=== PATIENT | male | born 1975 | race African-American/Black ===

== ENCOUNTER 2017-01-18 08:52 | Outpatient (CLI) | payer OTHER | END 2017-01-18 08:53 | disposition home or self-care (01) | PROVIDERS: ATTEND Internal Medicine Cardiovascular Disease | DX: Z01.810 Encounter for preprocedural cardiovascular examination (principal); I10 Essential (primary) hypertension | CPT/HCPCS: 93017 ==

== ENCOUNTER 2017-01-18 12:47 | Outpatient (CLI) | payer OTHER | END 2017-01-18 12:48 | disposition home or self-care (01) | LOC: DTY/OP 12:47 | PROVIDERS: ATTEND Surgery | DX: G47.30 Sleep apnea, unspecified (principal); I10 Essential (primary) hypertension | CPT/HCPCS: 97802 ==

== ENCOUNTER 2017-06-23 19:30 | Outpatient (CLI) | payer OTHER | END 2017-06-23 19:31 | disposition home or self-care (01) | LOC: SLEEPLAB 19:30 | PROVIDERS: ATTEND Internal Medicine | DX: G47.33 Obstructive sleep apnea (adult) (pediatric) (principal); R06.83 Snoring; K21.9 Gastro-esophageal reflux disease without esophagitis; E66.9 Obesity, unspecified; R30.0 Dysuria; R35.1 Nocturia; I10 Essential (primary) hypertension | CPT/HCPCS: 95811 ==

== ENCOUNTER 2018-01-04 10:25 | Outpatient (CLI) | payer OTHER ==
[2018-01-04 13:08] LABS: #Eosinphils 0.6 thou/uL (0.0-0.7); #Lymphocytes 1.9 thou/uL (1.20-3.40); #Monocytes 0.6 thou/uL (0.11-0.59); #Neutrophils 4.9 thou/uL (1.40-6.50); %Basophils 0.5 % (0.0-1.0); %Eosinophils 7.3 % (0.0-10.0); %Lymphocytes 23.9 % (21.0-51.0); %Monocytes 7.5 % (0.0-10.0); %Neutrophils 60.8 % (42.0-75.0); Hemoglobin 14.6 g/dL (14.0-18.0); Mean Corpuscular HGB CONC 32.8 g/dL (32.0-36.0); Mean Corpuscular Hemoglobin 30.5 pg (27.0-31.0); Mean Corpuscular Volume 92.7 fL (78.0-98.0); Mean Platelet Volume 8.5 fL (7.4-10.4); Platelet Count 299 thou/uL (130-400); RBC Distribution Width 12.6 % (11.5-14.5); Red Blood Cell (RBC) Count 4.79 mill/uL (4.70-6.10); White Blood Cell (WBC) Count 8.1 thou/uL (4.8-10.8)
[2018-01-04 13:17] LABS: Hemoglobin A1c 5.2 % (4.0-6.0)
[2018-01-04 13:29] LABS: ALT (SGPT) 23 U/L (8-55); AST (SGOT) 20 U/L (5-34); Albumin 3.8 g/dL (3.5-5.0); Alkaline Phosphatase 113 U/L (40-150); Anion Gap 14 mmol/L (10-20); BUN (Urea Nitrogen) 15 mg/dL (8.9-20.6); Bilirubin, Direct 0.2 mg/dL (0.1-0.3); Bilirubin, Total 0.5 mg/dL (0.2-1.2); Calc. Creatinine Clearance 0 mL/min (70-130); Carbon Dioxide 20 mmol/L (22-29); Chloride 106 mmol/L (98-107); Estimated GFR-MDRD 78; Globulin 3.8 g/dL (2.4-3.5); Glucose 74 mg/dL (70-105); Potassium 4.5 mmol/L (3.5-5.1); Protein, Total 7.6 g/dL (6.0-8.3); Sodium 135 mmol/L (136-145)
--- NOTE | 2018-01-04 13:34 | RAD ---
TWO VIEWS CHEST: Date: 01-04-18 Provided Clinical History: Pre op. FINDINGS: Comparison 03-17-04. Cardiac and mediastinal silhouette is unchanged in appearance. Lungs appear clear. No pleural fluid o r pneumothorax apparent. IMPRESSION: No evidence for an acute cardiopulmonary process. POS: [facility]
--- NOTE | 2018-01-04 17:47 | EKG ---
Test Reason : Blood Pressure : / mmHG Vent. Rate : 052 BPM Atrial Rate : 052 BPM P-R Int : 170 ms QRS Dur : 096 ms QT Int : 454 ms P-R-T Axes : 010 025 026 degrees QTc Int : 422 ms Sinus bradycardia Otherwise normal ECG When compared with ECG of 11-OCT-2015 12:42, Vent. rate has decreased BY [address] Jorge A LEIGH ([id number]) on 01/04/2018 5:47:12 PM Referred By: LEE Confirmed By:DR. Jorge A LEIGH
== END 2018-01-04 10:26 | disposition home or self-care (01) ==
LOC: LABBT 10:25
PROVIDERS: ATTEND Surgery
DX: Z01.818 Encounter for other preprocedural examination (principal); E66.01 Morbid (severe) obesity due to excess calories
CPT/HCPCS: 71046; 80053; 80076; 83036; 85025; 93005; 93010

== ENCOUNTER 2018-01-04 11:00 | Inpatient (IN) | payer OTHER ==
[2018-01-04 13:29] VITALS: BMI 54.8
[2018-01-12] MEDS ORDERED: Heparin 5,000 UNITS/ML VIAL ONE (06:11)
[2018-01-12] MEDS ORDERED: Midazolam HCl 2 mg/2 ml Vial ONE ×2 (06:36→07:13)
[2018-01-12] MEDS ORDERED: Fentanyl 250 MCG/5 ML VIAL ONE (06:36)
[2018-01-12] MEDS ORDERED: Bupivacaine/Epinephrine 0.25% 30 ML VIAL ONE (06:50)
[2018-01-12] MEDS ORDERED: CEFAZOLIN/Water 2 GM/20 ML SYRINGE ONE (06:53)
[2018-01-12] MEDS ORDERED: Ondansetron HCl/PF 4 MG/2 ML Vial IVP PRN ×3 (09:34→10:19)
[2018-01-12] MEDS ORDERED: Promethazine HCl 25 MG/ML VIAL IM PRN ×3 (09:34→10:19)
[2018-01-12] MEDS ORDERED: Morphine Sulfate 2 MG/ML SYRINGE SLOW IVP PRN (09:34)
[2018-01-12] MEDS ORDERED: Promethazine HCl 25 MG/ML VIAL SLOW IVP PRN (09:34)
[2018-01-12] MEDS ORDERED: Lidocaine 1% PF 5 ML VIAL ONE (09:40)
[2018-01-12] MEDS ORDERED: Glycopyrrolate 0.2 MG/ML 5 ML SYRINGE ONE (09:40)
[2018-01-12] MEDS ORDERED: ePHEDrine/0.9% NaCl/PF SYRINGE 50 mg/10 ml ONE (09:40)
[2018-01-12] MEDS ORDERED: Ondansetron HCl/PF 4 MG/2 ML Vial ONE (09:40)
[2018-01-12] MEDS ORDERED: PROPOFOL 200 MG/20 ML VIAL ONE (09:40)
[2018-01-12] MEDS ORDERED: Dexamethasone 20 MG/5 ML VIAL ONE (09:40)
[2018-01-12] MEDS ORDERED: Dextrose 5% in Water 1,000 ML IV PRN (09:45)
[2018-01-12] MEDS ORDERED: hydrALAZINE 20 MG/ML VIAL SLOW IVP PRN (09:45)
[2018-01-12] MEDS ORDERED: Hydrocodone-Acetamin 15 ML UDCUP PO PRN (09:45)
[2018-01-12] MEDS ORDERED: Dextrose 50% Abboject 50 ML SYRINGE SLOW IVP PRN (09:45)
[2018-01-12] MEDS ORDERED: diphenhydrAMINE 50 MG/ML VIAL IVP PRN ×2 (09:45→10:19)
[2018-01-12] MEDS ORDERED: Fentanyl 100 MCG/2 ML VIAL ONE (09:59)
[2018-01-12] MEDS ORDERED: diphenhydrAMINE 25 MG CAP PO PRN (10:19)
[2018-01-12] MEDS ORDERED: Naloxone HCl 0.4 mg/ml Vial IV PRN (10:19)
[2018-01-12] MEDS ORDERED: fentaNYL Citrate/PF 2,000 MCG in Sodium Chloride 0.9% 60 ML IV PRN (10:19)
[2018-01-12] MEDS ORDERED: Zolpidem Tartrate 5 MG TAB PO PRN (10:19)
[2018-01-12] MEDS ORDERED: diphenhydrAMINE 50 MG/ML VIAL IM PRN (10:19)
[2018-01-12] MEDS ORDERED: Communication Order-Pharmacy FS SCH (10:30)
[2018-01-12] MEDS ORDERED: Acetaminophen 1,000 MG in Premix Bag 1 BAG IVPB SCH (10:30)
--- NOTE | 2018-01-12 11:07 | OP ---
DATE OF PROCEDURE: 01/12/2018 PREOPERATIVE DIAGNOSIS: Morbid obesity. SURGEON: Jagjit Hawkins M.D. PROCEDURE: Laparoscopic sleeve gastrectomy, esophagogastroscopy. INDICATIONS: A 42-year-old male who has been morbidly obese for many years and attempted multiple we ight loss programs without success. FINDINGS: Very thick abdominal wall requiring an extra long trocars. A 38-Sami bougie was used. PROCEDURE IN DETAIL: After informed consent was obtained, the patient was taken to the operating dennis m and given general endotracheal anesthesia. He was placed in the supine position. Abdomen was prep ped and draped in usual fashion. Local anesthesia infiltrated subcutaneously and deep. A 12 mm inci lawanda was performed approximately 8 inches below the xiphoid slightly to the left. Veress needle inse rted. Drop test performed. Pneumoperitoneum was created to a volume of 2 liters of carbon dioxide. Utilizing a bladeless 12 mm trocar and 0 degree laparoscope, direct visual entry the abdominal cavit y was performed. Pneumoperitoneum was created to a pressure of 15 mmHg. However, due to the thickne ss of his abdominal wall I had to switch out to the long trocars. Then, a Nathansen liver retractor inserted. Left lobe of liver retracted superiorly. Pylorus identified, a 12 mm port placed on the r ight beneath it and two 12s placed left subcostal. The omentum was taken off the greater curvature 5 cm from the pylorus utilizing the LigaSure. Short gastrics divided with LigaSure, left crura define d with the LigaSure. A 38-Sami bougie inserted directed into the antrum. The linear 60 mm 2 green load stapler used to divide the antrum to the bougie, a gold load along the bougie, and a series of blues were used to divide the stomach. The intraoperative endoscopy was then performed. The video e ndoscope inserted under direct vision and advanced into the sleeve. The staple line inspected. Ther e was no bleeding. Staple line then tested by inflating the new stomach with pressurized air under w ater. There is no air leak. Stomach decompressed. Scope removed. The remnant stomach removed from the abdomen through the left lateral port site. The fascia closed with several 0 Vicryl sutures and the GraNee needle. Trocars and retractors removed after hemostasis assured. Skin closed with inter rupted 4-0 Rapide. Steri-Strips applied. Sterile bandage applied. The patient tolerated the proced ure well and was transferred to recovery in good condition. Sponge and needle count verified correct x2.
[2018-01-12] MEDS: Fentanyl 100 MCG/2 ML VIAL SLOW IVP SCH ×2 (12:52→12:53)
[2018-01-12] MEDS: D5 1/2 NS w/20 mEq KCL 1,000 ML IV SCH ×3 (13:13→23:27)
[2018-01-12] MEDS: Ketorolac Tromethamine 30 MG/ML VIAL IVP SCH ×3 (13:27→23:26)
[2018-01-12] MEDS: CEFAZOLIN/Water 2 GM/20 ML SYRINGE SLOW IVP SCH ×2 (15:47→23:27)
[2018-01-13] MEDS: Ketorolac Tromethamine 30 MG/ML VIAL IVP SCH ×4 (05:17→23:42)
[2018-01-13] MEDS: D5 1/2 NS w/20 mEq KCL 1,000 ML IV SCH ×3 (05:17→20:10)
[2018-01-13 05:45] LABS: Anion Gap 9 mmol/L (10-20); BUN (Urea Nitrogen) 10 mg/dL (8.9-20.6); Calc. Creatinine Clearance 204 mL/min (70-130); Calcium 8.8 mg/dL (7.8-10.44); Carbon Dioxide 22 mmol/L (22-29); Chloride 106 mmol/L (98-107); Estimated GFR-MDRD 74; Glucose 122 mg/dL (70-105); Potassium 4.4 mmol/L (3.5-5.1); Sodium 133 mmol/L (136-145)
[2018-01-13 05:58] LABS: #Lymphocytes 1.3 thou/uL (1.20-3.40); #Monocytes 0.9 thou/uL (0.11-0.59); #Neutrophils 9.7 thou/uL (1.40-6.50); %Basophils 0.1 % (0.0-1.0); %Eosinophils 0.1 % (0.0-10.0); %Lymphocytes 10.6 % (21.0-51.0); %Monocytes 7.3 % (0.0-10.0); Hemoglobin 13.1 g/dL (14.0-18.0); Mean Corpuscular HGB CONC 32.1 g/dL (32.0-36.0); Mean Corpuscular Hemoglobin 29.4 pg (27.0-31.0); Mean Corpuscular Volume 91.5 fL (78.0-98.0); Mean Platelet Volume 8.5 fL (7.4-10.4); Platelet Count 254 thou/uL (130-400); RBC Distribution Width 12.5 % (11.5-14.5); Red Blood Cell (RBC) Count 4.45 mill/uL (4.70-6.10); White Blood Cell (WBC) Count 11.9 thou/uL (4.8-10.8)
[2018-01-13] MEDS: Pantoprazole 40 MG VIAL IVP SCH (09:07)
[2018-01-13] MEDS: Enoxaparin Sodium 40 MG/0.4 ML SYRINGE SC SCH (09:07)
--- NOTE | 2018-01-13 10:51 | RAD ---
15 ML SWALLOW: History Postop day 1 gastric bypass. COMPARISON: None. FINDINGS: The patient was administered 15 cc of Gastrografin.. There is marked delay in passage of Gastrografi n from the esophagus into the residual stomach. After 20 minutes, Gastrografin is still present in t he stomach. There is a single postprocedure image obtained which does demonstrate some contrast in t he residual stomach and proximal small bowel. No evidence of leak or extravasation on this single ra diograph. Single radiograph still demonstrates contrast in the esophagus. IMPRESSION: Marked delay in passage of Gastrografin. There is still Gastrografin in the esophagus even after 20 minutes. POS: [facility]
[2018-01-13] MEDS ORDERED: Iopamidol 300 61% 30 ML VIAL ONE (11:23)
--- NOTE | 2018-01-13 11:33 | PRG ---
DATE OF SERVICE: 01/13/2018 SUBJECTIVE: The patient says he has been tolerating some ice chips and liquids. He went down for hi s swallow study quite a bit of inflammation not very much of the contrast went through, but he says he feels fine. Pain is okay. OBJECTIVE: VITAL SIGNS: Temperature 98, pulse 79, and blood pressure 156/85. GENERAL: He looks good. Incisions are healing well. No minimal drainage. LABORATORY DATA: His white count 11.9, H&H 13 and 40, platelet count 254. Electrolytes: Glucose 12 2, sodium 133. ASSESSMENT: Postoperative edema. PLAN: Allow him just ago with very small sips, he probably need to spend an extra day here.
[2018-01-14] MEDS: Ketorolac Tromethamine 30 MG/ML VIAL IVP SCH ×2 (05:42→12:02)
[2018-01-14] MEDS: D5 1/2 NS w/20 mEq KCL 1,000 ML IV SCH (05:46)
[2018-01-14] MEDS: Enoxaparin Sodium 40 MG/0.4 ML SYRINGE SC SCH (08:52)
[2018-01-14] MEDS: Pantoprazole 40 MG VIAL IVP SCH (08:52)
[2018-01-14 11:48] VITALS: BP 153/88; TEMP 98.1
--- NOTE | 2018-01-14 13:35 | DIS ---
DISCHARGE DIAGNOSIS: Morbid obesity. PROCEDURES DURING ADMISSION: Laparoscopic sleeve gastrectomy, intraoperative esophagogastroscopy, po stoperative Gastrografin swallow. HOSPITAL COURSE: The patient was admitted, taken to the operating room where he underwent sleeve gas trectomy. Postoperatively, he had a Gastrografin swallow that showed a lot of holdup at the EG junct ion. He was able to tolerate some liquids, but was not able to stay hydrated completely yet. He spe nt an extra day and today he is doing much better. He is able to drink fluids much better and is stephon ng discharged home in good condition on Zofran. He already has his narcotics for his back pain. He will follow up with me in 2 weeks.
== END 2018-01-14 13:07 | disposition home or self-care (01) | DRG 621 ==
LOC: SURG A 01-12 05:51
PROVIDERS: ADMIT Surgery; ATTEND Surgery
PROC: 0DB64Z3 Excision of Stomach, Percutaneous Endoscopic Approach, Vertical (ICD-10-PCS; principal; 2018-01-12)
DX: E66.01 Morbid (severe) obesity due to excess calories (principal); R60.9 Edema, unspecified; Z68.43 Body mass index [BMI] 50.0-59.9, adult; M54.9 Dorsalgia, unspecified; Z79.891 Long term (current) use of opiate analgesic
CPT/HCPCS: 36415; 74241; 80048; 85025; 88307; 88312; 94760; C9113; J0131; J0360; J1100; J1644; J1650; J1885; J2001; J2250; J2405; J2704; J3010; J7050

== ENCOUNTER 2018-01-26 13:35 | Inpatient (IN) | payer OTHER ==
[~2018-01-26 13:35] MED LIST: ISOVUE-370 76%-LOCM 1 ML ONE
[2018-01-26 14:14] LABS: Hemoglobin 15.1 g/dL (14.0-18.0); Mean Corpuscular HGB CONC 32.3 g/dL (32.0-36.0); Mean Corpuscular Hemoglobin 30.1 pg (27.0-31.0); Mean Platelet Volume 9.8 fL (7.4-10.4); Platelet Count 269 thou/uL (130-400); RBC Distribution Width 12.8 % (11.5-14.5); Red Blood Cell (RBC) Count 5.03 mill/uL (4.70-6.10); White Blood Cell (WBC) Count 15.3 thou/uL (4.8-10.8)
[2018-01-26 14:26] LABS: Eosinophils 1 % (0-10); Lymphocytes 10 % (21-51); MDiff Complete? YES; Monocytes 4 % (0-10); Neutrophil 85 % (42-75); PLT Morphology Comment Appears Adequate; RBC Morphology Normal
[2018-01-26 14:34] LABS: CKMB 4.1 ng/mL (0-6.6)
--- NOTE | 2018-01-26 15:02 | RAD ---
CHEST ONE VIEW: 01/26/18 HISTORY: Dyspnea. COMPARISON: Chest radiograph 01/04/18. FINDINGS: Chronic mild elevation of the right hemidiaphragm. Heart size is upper limits of normal. No pneumotho rax. No effusion. No acute osseous abnormality. IMPRESSION: Mild cardiomegaly. No acute intrathoracic abnormality. POS: [facility]
[2018-01-26 16:00] LABS: ALT (SGPT) 18 U/L (8-55); AST (SGOT) 18 U/L (5-34); Albumin 3.6 g/dL (3.5-5.0); Alkaline Phosphatase 110 U/L (40-150); Anion Gap 19 mmol/L (10-20); BUN (Urea Nitrogen) 13 mg/dL (8.9-20.6); Bilirubin, Total 0.8 mg/dL (0.2-1.2); Calc. Creatinine Clearance 0 mL/min (70-130); Calcium 9.4 mg/dL (7.8-10.44); Carbon Dioxide 18 mmol/L (22-29); Chloride 104 mmol/L (98-107); Estimated GFR-MDRD 62; Globulin 4.3 g/dL (2.4-3.5); Glucose 89 mg/dL (70-105); Potassium 4.4 mmol/L (3.5-5.1); Protein, Total 7.9 g/dL (6.0-8.3); Sodium 137 mmol/L (136-145)
[2018-01-26] MEDS ORDERED: Heparin 25,000 units/D5W 500 ML ONE (16:16)
--- NOTE | 2018-01-26 16:18 | PDOC.FPRHP ---
- History of Present Illness Chief Complaint: SOB History of Present Illness: 42 yo male who presents to the ED with acute onset SOB. Patient states he had gastric sleeve surgery 2 weeks ago and has been recovering well. Patient states that 3 days ago when he woke up to get out of bed that he had acute onset chest pain and SOB. He stated that it wasn't severe enough to seek medical attention at that time. Patient states that he has chronic back pain at baseline, but over the last three days he has been increasingly weak. Patient denies any recent illness, cough, bloody emesis, diarrhea, or rashes during this time. Patient does note that he had 2 episodes of vomiting. Patient denies lower extremity edema, redness or swelling in his legs or joints, unilateral weakness , or vision changes. Patient states that other than his SOB his recovery was going well and was scheduled to see his PCP today. Of note, patient has residual left sided weakness from previous "stroke." No other complaints at this time. ED Course: 1L NS, Protonix, Heparin 18 un/kg/hr infusion - Allergies/Adverse Reactions Allergies Allergy/AdvReac Type Severity Reaction Status Date / Time No Known Allergies Allergy Verified 01/04/18 11:11 - Home Medications Medication Instructions Recorded Confirmed Type HYDROcodone Bit/APAP 10/325 [[place]] 1 tab PO Q4HR PRN 10/08/15 01/04/18 History Pantoprazole [Protonix] 40 mg PO HS 10/08/15 01/04/18 History Atorvastatin Calcium [Lipitor] 1 tab PO HS 01/04/18 01/04/18 History Furosemide 0.5 tab PO QAM 01/04/18 01/05/18 History Amiodarone [Cordarone] 200 mg PO DAILY 01/05/18 01/05/18 History Diltiazem HCl [Diltiazem 24Hr ER] 1 cap PO DAILY 01/05/18 01/05/18 History Ondansetron [Zofran ODT] 4 mg PO Q4HR PRN #10 tab 01/14/18 Rx - History PMHx: HTN, A-fib, Chronic back pain, GERD PSHx: Tumor removal from behind ear, Gastric sleeve 2 weeks ago. FHx: Heart disease, DM, Thyroid disease Social: Patient is former tobacco smoker. Patient has been smoke free 6 months. Patient socially drinks alcohol 4 times per year. Patient denies any illegal drug use. - Review of Systems General: denies: fever/chills, weight/appetite/sleep changes ENT: denies: nasal congestion Respiratory: reports: shortness of breath. denies: cough Cardiovascular: reports: chest pain Gastrointestinal: reports: nausea, vomiting. denies: diarrhea, constipation, abdominal pain Skin: denies: rashes, lesions Musculoskeletal: denies: pain, swelling Neurological: reports: weakness. denies: numbness, syncope Psychological: denies: anxiety, depression - Vital signs BP: 117/95 HR: 111 RR: 16 Tmax: 97.6 Pox: 100% on 3L Wt: 179 kg - Physical Exam Constitutional: NAD, awake, alert and oriented -Constitutional: Morbidly obese HEENT: normocephalic and atraumatic, PERRLA -HEENT: Steinberg teeth present Neck: supple, trachea midline Heart: normal S1/S2, no murmurs/rubs/gallops, pulses present, no edema -Heart: Tachycardic rate Lungs: CTAB, no respiratory distress, good air movement, no wheezing Abdomen: soft, non-tender, bowel sounds present, no masses/distention -Abdomen: Laparoscopic incision sites clean, dry, and intact Musculoskeletal: normal structure, normal tone Neurological: normal sensation -Neurological: Residual left sided facial droop. Per family and patient at baseline Skin: no rash/lesions, capillary refill <2 seconds -Skin: Multiple tattoos Heme/Lymphatic: no unusual bruising or bleeding, no purpura, no petechia Psychiatric: normal mood and affect, good judgment and insight, intact recent and remote memory FMR H&P: Results - Labs Result Diagrams: 01/26/18 13:56 01/26/18 15:24 Lab results: WBC 15.3 thou/uL (4.8-10.8) H 01/26/18 13:56 Hgb 15.1 g/dL (14.0-18.0) 01/26/18 13:56 Hct 46.8 % (42.0-52.0) 01/26/18 13:56 MCV 93.0 fL (78.0-98.0) 01/26/18 13:56 Plt Count 269 thou/uL (130-400) 01/26/18 13:56 Sodium 137 mmol/L (136-145) 01/26/18 15:24 Potassium 4.4 mmol/L (3.5-5.1) 01/26/18 15:24 Chloride 104 mmol/L (98-107) 01/26/18 15:24 Carbon Dioxide 18 mmol/L (22-29) L 01/26/18 15:24 BUN 13 mg/dL (8.9-20.6) 01/26/18 15:24 Creatinine 1.50 mg/dL (0.6-1.3) H 01/26/18 15:24 Glucose 89 mg/dL (70-105) 01/26/18 15:24 Calcium 9.4 mg/dL (7.8-10.44) 01/26/18 15:24 Total Bilirubin 0.8 mg/dL (0.2-1.2) 01/26/18 15:24 AST 18 U/L (5-34) 01/26/18 15:24 ALT 18 U/L (8-55) 01/26/18 15:24 Alkaline Phosphatase 110 U/L (40-150) 01/26/18 15:24 CK-MB (CK-2) 4.1 ng/mL (0-6.6) 01/26/18 13:56 Serum Total Protein 7.9 g/dL (6.0-8.3) 01/26/18 15:24 Albumin 3.6 g/dL (3.5-5.0) 01/26/18 15:24 Lipase 42 U/L (8-78) 01/26/18 13:56 - EKG Interpretation EK lead EKG shows, sinus tachycardia, Rate (beats per minute): 120, Conduction with, posterior fascicular block, T waves, inverted, Leads affected: III, Leads affected: aVf, Senath, right, - Radiology Interpretation Chest x-ray Status: image reviewed by me, report reviewed by me (Cardiomegaly, no other acute findings) CT scan - chest Status: image reviewed by me (Bilateral pulmonary emboli), report reviewed by me FMR H&P: A/P - Problem List (1) Multiple pulmonary emboli Current Visit: Yes Status: Acute Code(s): I26.99 - OTHER PULMONARY EMBOLISM WITHOUT ACUTE COR PULMONALE (2) Morbid obesity Current Visit: No Status: Acute Code(s): E66.01 - MORBID (SEVERE) OBESITY DUE TO EXCESS CALORIES (3) History of weight loss surgery Current Visit: Yes Status: Acute Code(s): Z98.84 - BARIATRIC SURGERY STATUS (4) Leukocytosis Current Visit: Yes Status: Acute Code(s): D72.829 - ELEVATED WHITE BLOOD CELL COUNT, UNSPECIFIED (5) Elevated troponin Current Visit: Yes Status: Acute Code(s): R74.8 - ABNORMAL LEVELS OF OTHER SERUM ENZYMES (6) MAGDY (acute kidney injury) Current Visit: Yes Status: Acute Code(s): N17.9 - ACUTE KIDNEY FAILURE, UNSPECIFIED (7) HTN (hypertension) Current Visit: No Status: Acute Code(s): I10 - ESSENTIAL (PRIMARY) HYPERTENSION (8) History of atrial fibrillation Current Visit: Yes Status: Acute Code(s): Z86.79 - PERSONAL HISTORY OF OTHER DISEASES OF THE CIRCULATORY SYSTEM (9) History of CVA (cerebrovascular accident) Current Visit: Yes Status: Acute Code(s): Z86.73 - PRSNL HX OF TIA (TIA), AND CEREB INFRC W/O RESID DEFICITS (10) GERD (gastroesophageal reflux disease) Current Visit: Yes Status: Acute Code(s): K21.9 - GASTRO-ESOPHAGEAL REFLUX DISEASE WITHOUT ESOPHAGITIS - Plan 1. Multiple PE - Continue Heparin - Will need to be transitioned to termite treater helper oral medications - Will consider hypercoagulability panel, however, likely low yield due to acute clot - Continuous cardiac monitoring - Lower extremity Doppler US to rule out DVT 2. Morbid Obesity - Recent weight loss surgery - Dr. Hawkins performed procedure on 01/12. Discharged 01/14. - Recommend weight loss - Modified diet per surgery recommendations 3. Leukocytosis - Likely due to PE - Will trend with CBC 4. Elevated Troponin - Likely related to PE and demand - repeat/trend troponins - Consider cardiology consult (Dr. Catherine primary cellophane casting machine repairer) 5. MAGDY - Elevated above baseline - Could be due to recent surgery and diet changes - IVF NS @ 150 - Recheck BMP #. GERD - Continue home medications #. HTN - Continue home medications #. Past history of A-fib - Currently in sinus tachycardia - Continuous telemetry monitoring - Cardiology stopped anticoagulants in recent past #. Past history of CVA - MRI in clinic chart shows ischemic changes in right lobe - baseline left sided facial weakness CODE STATUS: FULL CODE PCP: Dr. Shearer Disposition: Stable, will admit to Telemetry unit and continue current plan of care.
[2018-01-26] MEDS ORDERED: Heparin 25,000 units/D5W 500 ML IV SCH (16:45)
[2018-01-26] MEDS ORDERED: Heparin 10,000 UNITS/ 10 ML VIAL SLOW IVP SCH ×2 (16:45→17:30)
--- NOTE | 2018-01-26 17:07 | CT ---
CT PULMONARY ANGIOGRAM WITH IV CONTRAST AND 3D POSTPROCESSING: Date: 01/26/18 HISTORY: 42-year-old male with chest pain, shortness of breath, recent gastric sleeve surgery 2 weeks ago. FINDINGS: There is good contrast opacification of the pulmonary arterial vasculature with filling defects bilat erally, consistent with pulmonary embolism. No thoracic aortic aneurysm or dissection is seen. No ple ural or pericardial effusions are identified. No pneumothoraces, lobar consolidation, pulmonary nodul es, or masses are seen. No osteolytic or osteoblastic lesions are noted. IMPRESSION: Bilateral pulmonary embolism. Discussed over the telephone with ER physician, Dr. Sonu Lam, at 1608 hours. CODE CR. POS: [facility]
[2018-01-26] MEDS ORDERED: Heparin 25,000 units/D5W 500 ML IVPB SCH (17:30)
[2018-01-26 18:10] LABS: Platelet Count 245 thou/uL (130-400)
[2018-01-26 18:11] LABS: Troponin I 0.761 ng/mL (< 0.028)
[2018-01-26 18:24] LABS: PTT 236.8 SEC (22.9-36.1)
[2018-01-26] MEDS ORDERED: Metoprolol Tartrate 5 MG/5 ML VIAL ONE ×2 (19:05→19:18)
[2018-01-26] MEDS ORDERED: Metoprolol Tartrate 50 MG TAB ONE (19:18)
[2018-01-26] MEDS ORDERED: Sodium Chloride 0.9% 1,000 ML IV SCH (20:15)
[2018-01-26 20:39] LABS: Troponin I 1.141 ng/mL (< 0.028)
[2018-01-26] MEDS ORDERED: Acetaminophen 325 MG TAB PO PRN (20:58)
[2018-01-26] MEDS ORDERED: Bisacodyl 5 MG TAB PO PRN (20:58)
[2018-01-26] MEDS ORDERED: Ondansetron ODT 4 MG TAB PO PRN (20:58)
[2018-01-26 21:07] VITALS: BMI 51.2
[2018-01-26] MEDS ORDERED: Sodium Chloride 0.9% 500 ML IV SCH (21:15)
[2018-01-26 21:30] LABS: Actual Bicarbonate (HCO3a) 14.4 mEq/L (22-28); Base Excess (BEa) -8.2 mEq/L (-2.0 to +3.0); Calcium, Ionized 1.12 mmol/L (1.12-1.30); Hemoglobin (Hb) 15.2 g/dL (14.0-18.0); Potassium - ABG Lab 5.33 mmol/L (3.70-5.30)
[2018-01-26 21:35] LABS: CO2 Tension 23.8 mmHg (35.0-45.0)
[2018-01-26 21:36] LABS: Puncture Site RRAD
[2018-01-26] MEDS: Sodium Chloride 0.9% 1,000 ML IV SCH (22:54)
[2018-01-26] MEDS: Ondansetron HCl/PF 4 MG/2 ML Vial IVP PRN (22:59)
[2018-01-26] MEDS ORDERED: Vancomycin HCl 2.5 GM in Sodium Chloride 0.9% 500 ML IVPB SCH (23:00)
[2018-01-27] MEDS: Piperacillin/Tazobactam 4.5 GM in Sodium Chloride 0.9% 100 ML IVPB SCH ×2 (01:57→06:07)
[2018-01-27] MEDS ORDERED: Lidocaine 2% Viscous Solution 20 ML, Aluminum & Magnesium Hydroxide 30 ML, Donnatal Eli... SSW SCH (02:30)
[2018-01-27 03:58] LABS: #Lymphocytes 1.5 thou/uL (1.20-3.40); #Monocytes 0.7 thou/uL (0.11-0.59); #Neutrophils 10.8 thou/uL (1.40-6.50); %Basophils 0.1 % (0.0-1.0); %Eosinophils 0.3 % (0.0-10.0); %Lymphocytes 11.4 % (21.0-51.0); %Monocytes 5.5 % (0.0-10.0); %Neutrophils 82.6 % (42.0-75.0); Hemoglobin 15.4 g/dL (14.0-18.0); Mean Corpuscular HGB CONC 31.2 g/dL (32.0-36.0); Mean Corpuscular Volume 92.9 fL (78.0-98.0); Mean Platelet Volume 9.1 fL (7.4-10.4); Platelet Count 129 thou/uL (130-400); RBC Distribution Width 12.8 % (11.5-14.5); Red Blood Cell (RBC) Count 5.32 mill/uL (4.70-6.10); White Blood Cell (WBC) Count 13.1 thou/uL (4.8-10.8)
[2018-01-27 04:10] LABS: PTT Greater than 250.0 SEC (22.9-36.1)
[2018-01-27 04:21] LABS: Anion Gap 20 mmol/L (10-20); BUN (Urea Nitrogen) 18 mg/dL (8.9-20.6); Calc. Creatinine Clearance 103 mL/min (70-130); Calcium 9.2 mg/dL (7.8-10.44); Carbon Dioxide 18 mmol/L (22-29); Chloride 104 mmol/L (98-107); Estimated GFR-MDRD 37; Glucose 158 mg/dL (70-105); Potassium 5.9 mmol/L (3.5-5.1); Sodium 136 mmol/L (136-145)
--- NOTE | 2018-01-27 05:26 | PDOC.FM ---
- Subjective Subjective: Overnight had tachypnea and tachycardia, pt received Metoprolol 50mg IV x2, and metoprolol 50mg PO, 1L IV fluids. No urine output overnight. Also reported belching and stomach discomfort overnight which resolved with GI cocktail. Reports continued chest pain and SOB. Fiance present. - Objective MAR Reviewed: Yes Vital Signs & Weight: Vital Signs (12 hours) Temp Pulse Resp BP Pulse Ox 01/27/18 04:00 99 01/27/18 03:59 97.0 F L 62 24 H 110/80 99 01/27/18 00:00 96.2 F L 98 28 H 112/70 96 01/26/18 20:45 110 H 40 H 105/80 100 Weight Weight 181 kg Result Diagrams: 01/27/18 04:47 01/27/18 04:47 Phys Exam - Physical Examination In mild distress Appears SOB Cardiovascular: RRR tachycardic Gastrointestinal: soft, non-tender, positive bowel sounds Musculoskeletal: no edema, pulses present Psychiatric: normal affect, A&O x 3 Skin: cap refill <2 seconds Deviation from normal: tattoos present Dx/Plan (1) Multiple pulmonary emboli Code(s): I26.99 - OTHER PULMONARY EMBOLISM WITHOUT ACUTE COR PULMONALE Status : Acute (2) MAGDY (acute kidney injury) Code(s): N17.9 - ACUTE KIDNEY FAILURE, UNSPECIFIED Status: Acute (3) GERD (gastroesophageal reflux disease) Code(s): K21.9 - GASTRO-ESOPHAGEAL REFLUX DISEASE WITHOUT ESOPHAGITIS Status: Chronic (4) History of CVA (cerebrovascular accident) Code(s): Z86.73 - PRSNL HX OF TIA (TIA), AND CEREB INFRC W/O RESID DEFICITS Status: Acute (5) History of atrial fibrillation Code(s): Z86.79 - PERSONAL HISTORY OF OTHER DISEASES OF THE CIRCULATORY SYSTEM Status: Chronic (6) History of weight loss surgery Code(s): Z98.84 - BARIATRIC SURGERY STATUS Status: Acute (7) Leukocytosis Code(s): D72.829 - ELEVATED WHITE BLOOD CELL COUNT, UNSPECIFIED Status: Acute (8) HTN (hypertension) Code(s): I10 - ESSENTIAL (PRIMARY) HYPERTENSION Status: Chronic (9) Morbid obesity Code(s): E66.01 - MORBID (SEVERE) OBESITY DUE TO EXCESS CALORIES Status: Chronic - Plan Plan: Multiple PE - Holding Heparin for possible HIT and elevated PTT - Will need to be transitioned to snf oral medications - Will consider hypercoagulability panel, however, likely low yield due to acute clot - Continuous cardiac monitoring - Echo pending Suspected HIT - Received Lovenox last month before gastric sleeve surgery, pt reports instructed to stop per Dr Hawkins - Plts 259-> 129 - Heparin Held - Will repeat CBC and plan to switch to another AC agent High PTT - 250 - Heparin Held Hyperkalemia - 4.4-> 5.9 with worsening kidney function - Calcium gluconate, insulin/glucose ordered Sepsis - Tachycardic, tachypneic, leukocytosis - Lactic 1.6 - Continue Vanc/Zosyn - Blood cxs pending Elevated Troponin - Likely related to PE and demand - 0.410-> 1.141-> 0.971 - Cardiology consulted, Apprec recs MAGDY - Elevated above baseline - 1.5-> 2.36-> 2.39 - Could be due to recent surgery and diet changes - IVF NS @ 150 - No urine output overnight, will give 1L bolus - Consulting Nephrology - Monitor BMP Recent weight loss surgery for morbid obesity - Dr. Hawkins performed procedure on 01/12. Discharged 01/14. - Dr Hawkins has been notified - Modified diet per surgery recommendations Leukocytosis - Likely due to PE - Will trend with CBC GERD - Continue home medications HTN - Continue home medications Past history of A-fib - Currently in sinus tachycardia - Continuous telemetry monitoring - Cardiology stopped anticoagulants in recent past Past history of CVA - MRI in clinic chart shows ischemic changes in right lobe - Baseline left sided facial weakness Code Status FULL
[2018-01-27 05:46] LABS: Critical Call Chem Troponin I RESULT DECREASING; Troponin I 0.971 ng/mL (< 0.028)
[2018-01-27 05:59] LABS: PTT Greater than 250.0 SEC (22.9-36.1)
[2018-01-27] MEDS ORDERED: Pantoprazole 40 MG GRANULES PACKET PO SCH (06:15)
[2018-01-27] MEDS ORDERED: Sodium Chloride 0.9% 1,000 ML IV SCH ×2 (06:45→20:00)
[2018-01-27] MEDS: Ondansetron HCl/PF 4 MG/2 ML Vial IVP PRN (06:54)
[2018-01-27] MEDS ORDERED: Multivit, Adult Inj 10 ML VIAL IV SCH (07:45)
--- NOTE | 2018-01-27 07:46 | ULT ---
ULTRASOUND WITH DOPPLER DUPLEX VENOUS LOWER EXTREMITY BILATERAL: Date: 01/26/18 CPT: 92040 ICD-10-PCS: [id number] INDICATION: Pain. Shortness of breath. TECHNIQUE: Color flow Doppler, spectral waveform analysis of pulsed Doppler, and figueroa-scale imaging with garcía lawanda and augmentation, were used to evaluate the bilateral common femoral, femoral, popliteal, candy cutter machine ior tibial, and superficial femoral, veins; and the proximal portions of the profunda femoral and gre ater saphenous, veins. FINDINGS: There is appropriate compressibility and flow within the imaged deep vein system of each visualized l ower extremity without evidence of deep vein thrombosis. IMPRESSION: No deep venous thrombosis identified within the visualized, bilateral lower extremities. POS: [facility]
[2018-01-27 07:54] LABS: PTT 128.8 SEC (22.9-36.1)
[2018-01-27 08:11] LABS: Anion Gap 23 mmol/L (10-20); BUN (Urea Nitrogen) 18 mg/dL (8.9-20.6); Calc. Creatinine Clearance 103 mL/min (70-130); Carbon Dioxide 13 mmol/L (22-29); Chloride 105 mmol/L (98-107); Estimated GFR-MDRD 36; Glucose 124 mg/dL (70-105); Potassium 6.4 mmol/L (3.5-5.1); Sodium 135 mmol/L (136-145)
[2018-01-27 08:23] LABS: Platelet Count 113 thou/uL (130-400)
[2018-01-27 08:28] LABS: Hemoglobin 15.4 g/dL (14.0-18.0); Mean Corpuscular Volume 93.6 fL (78.0-98.0); RBC Distribution Width 12.9 % (11.5-14.5); Red Blood Cell (RBC) Count 5.15 mill/uL (4.70-6.10); White Blood Cell (WBC) Count 15.1 thou/uL (4.8-10.8)
[2018-01-27] MEDS ORDERED: Dextrose 50% Abboject 50 ML SYRINGE SLOW IVP PRN (08:54)
[2018-01-27] MEDS ORDERED: Insulin Regular 300 UNITS/3 ML VIAL IVP SCH (09:00)
[2018-01-27] MEDS ORDERED: Multivitamins, Adult 10 ML in Sodium Chloride 0.9% 500 ML IV SCH (09:15)
[2018-01-27] MEDS ORDERED: Sodium Bicarbonate 150 MEQ in Dextrose 5% in Water 1,000 ML IV SCH (09:30)
--- NOTE | 2018-01-27 09:33 | CON ---
DATE OF CONSULTATION: 01/27/2018 CHIEF COMPLAINT: Shortness of breath, chest pain. HISTORY: The patient is a 42-year-old male who is 2 weeks status post sleeve gastrectomy for morbid obesity. He says that over the last day or two, he has been having increasing shortness of breath an d chest pain. He went to the emergency room where a CT angiogram showed that he has bilateral pulmon brianna emboli. He was admitted and started on anticoagulation. He is breathing better now. 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 PAST SURGICAL HISTORY: He has had the sleeve, he had a mass removed behind his ear. MEDICATIONS: Pantoprazole, Lasix, diltiazem, amiodarone, hydrochlorothiazide, ranitidine, metoprolol , [place]. ALLERGIES: He has no known drug allergies. PHYSICAL EXAMINATION: VITAL SIGNS: Temperature 96.4, pulse 94, blood pressure 104/85. He is on 2 liters of nasal cannula with 97% saturation. GENERAL: He is awake, alert, somewhat tachypneic with a respiratory rate of 29. HEENT: Otherwise, unremarkable. LUNGS: Clear. HEART: Regular rate and rhythm. ABDOMEN: Obese, soft. The incisions are healing well. There is no evidence of infection. EXTREMITIES: Unremarkable. LABORATORY AND X-RAY FINDINGS: White count 13, H&H 15 and 49, platelet count 129,000. Electrolytes show his creatinine is elevated at 2.3, troponin was elevated at 0.97. ASSESSMENT: Again, he has positive CT angiogram. PLAN: Anticoagulation. He also appears to be dehydrated, probably should get some fluid, multivitam ins. He can be started on full liquid diet, bariatric.
[2018-01-27 10:37] LABS: ALT (SGPT) 2842 U/L (8-55); AST (SGOT) 2975 U/L (5-34); Albumin 3.6 g/dL (3.5-5.0); Alkaline Phosphatase 112 U/L (40-150); Anion Gap 19 mmol/L (10-20); BUN (Urea Nitrogen) 21 mg/dL (8.9-20.6); Bilirubin, Total 1.6 mg/dL (0.2-1.2); Calc. Creatinine Clearance 100 mL/min (70-130); Carbon Dioxide 18 mmol/L (22-29); Chloride 106 mmol/L (98-107); Estimated GFR-MDRD 35; Globulin 3.8 g/dL (2.4-3.5); Glucose 117 mg/dL (70-105); Potassium 5.7 mmol/L (3.5-5.1); Protein, Total 7.4 g/dL (6.0-8.3); Sodium 137 mmol/L (136-145)
--- NOTE | 2018-01-27 11:27 | CON ---
DATE OF CONSULTATION: 01/27/2018 HISTORY: This is a 42-year-old morbidly obese gentleman, 178 kilos who recently und erwent gastric sleeve surgery, no more than 11 days ago. He presented to the ER with shortness of br eath, vague chest pain, abdominal pain. His family is present at the bedside. I had a lengthy discu ssion last night with the attending physician and primary care physician about his diagnosis that he was not a candidate for any thrombolytic therapy, but to initiate IV heparin. Get an echo and ultrasound of the leg. This morning his platelet count has dropped. Clearly he is still having some difficulty breathing. He was unable to tolerate his CPAP last night. He denies any coughing, wheezing, orthopnea, PND. As per his most recent surgery. PAST MEDICAL HISTORY: Reported for chronic pain. Previous left-sided pain discomfort, chronic back pain, renal stones. 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 SOCIAL HISTORY: Smokes half pack a day. Alcohol minimal. MEDICATIONS: From home include Protonix, hydrocodone, Lasix, Cardizem 240, Lipitor, amiodarone 200. He also has a history of presumed atrial fibrillation. REVIEW OF SYSTEMS: Otherwise unremarkable. PHYSICAL EXAMINATION: VITAL SIGNS: Sats are 97 on 2 liters, temperature 96, pulse 94, respiration 29, blood pressure 104/8 5. CHEST: Chest revealed no wheezing, no crackles. CARDIAC: Normal S1-S2. No gallops. ABDOMEN: Soft. No masses. LABORATORY: ____ 128. His white count 15,000, H&H 15 and 48 admission, platelet count was 245. He had platelet count at the time of his discharge 269. I reviewed his records from his previous admiss ion. He received only Lovenox for DVT prophylaxis. On examination he appears to be in mild distress. CHEST: No wheezing, crackles. CARDIAC: Sinus tachycardia. ABDOMEN: Distended, but soft. Chest x-ray was normal. A CT angio chest last night shows evidence of bilateral pulmonary emboli. N o other masses were seen. He had an emergency venogram done last night which showed no evidence of D VT. IMPRESSION: 1. Bilateral pulmonary emboli. 2. Worsening renal failure, probably prerenal. 3. Recent gastric bypass surgery. 4. History of kidney stone. 5. History of atrial fibrillation. PLAN: No reason to suspect sepsis. Discontinue vancomycin, adjusted Zosyn for his renal failure. C ontinue hydration. Continue IV heparin. HITA level has been ordered stat. If it is positive, we may have to switch him over to a different a nticoagulation. Continue ambulation, supportive care and PT. This is a 45 minute critical care time. I will follow.
[2018-01-27 12:47] LABS: Creatinine, Urine 392.47 mg/dL (63-166); Sodium, Urine Less than 20 mmol/L (Not Available)
--- NOTE | 2018-01-27 12:51 | CON ---
DATE OF CONSULTATION: 01/27/2018 REASON FOR CONSULTATION: Pulmonary embolism with history of atrial fibrillation. PRIMARY MACHINE PACK ASSEMBLER: Dr. Gilbert Catherine HISTORY OF PRESENT ILLNESS: Mr. Pelaez is a 42-year-old man. He is status post gastric sleeve santos rgery which was done successfully on 01/12/2018. The patient presented to the hospital with shortnes s of breath which had gotten worse over the last 3 days. Testing has revealed pulmonary embolism. An echocardiogram looks like thrombus in the right side of his heart. The patient remains very short of breath despite heparin and of concern, the platelet count is decrea sing. There is some concern about heparin induced thrombocytopenia. In addition to that, the patient's renal function has worsened. He has a borderline troponin level. BNP is no normal to low normal. The patient's liver function tests are also dramatically increased. The patient's bilirubin is also elevated. PAST MEDICAL HISTORY: 1. Paroxysmal atrial fibrillation. 2. Morbid obesity. REVIEW OF SYSTEMS: CONSTITUTIONAL: Positive for shortness of breath and weakness. VISION: No changes. HEARING: No changes. PULMONARY: Positive for shortness of breath. CARDIAC: No anginal chest pain. GASTROINTESTINAL: No vomiting or diarrhea. SKIN: No rashes. NEUROLOGIC: No unilateral weakness or numbness. Psychiatric: No unusual depression or anxiety. SOCIAL HISTORY: No smoking. PHYSICAL EXAMINATION: GENERAL: This is a moderately ill appearing 42-year-old gentleman on nasal cannula. VITAL SIGNS: Blood pressure 104/85, pulse is in the 90s, it is sinus. HEENT: Eyes; sclerae nonicteric. Mouth mucous membranes moist. NECK: Supple. No lymphadenopathy. LUNGS: Clear. CARDIOVASCULAR: Normal S1, normal S2. There is no murmur, rub or gallop, it is very distant due to his obesity. ABDOMEN: Obese, nontender, no hepatosplenomegaly, although it is extremely obese, difficult to tell. SKIN: Warm and dry. PSYCHIATRIC: He is mildly apprehensive. The patient is not diaphoretic. PERTINENT LABORATORY AND X-RAY FINDINGS: His pH was 7.4, pCO2 of 23.8, pO2 is 104, that was yesterda y. Hemoglobin 15.4. The platelet count went from 269 to 113, creatinine 2.36 up to 2.46, creatinine on 01/13/2018 was 1.28. The patient's liver function tests are markedly abnormal with AST 2975 and a bilirubin up to 1.6. BNP is 11.2. EKG sinus rhythm, fortunately. Echocardiogram showed normal left ventricular function. He has a dil ated right ventricle, paradoxical septal motion and masses in the right atrium which looks like throm bus. There are mobile and long. The CT angiogram revealed bilateral pulmonary embolism. ASSESSMENT: 1. Recent gastric sleeve. 2. Morbid obesity. 3. Bilateral pulmonary embolism. 4. Relatively low platelet count. PLAN: 1. I agree with continuing to monitor platelet count. 2. Recommend some intravenous fluid. 3. If platelet count further drops, could consider changing to Eliquis, although that is somewhat pr oblematic in terms of that is primarily liver excreted, his liver does not seem to be functioning nor fransico either. For now, continue heparin seems reasonable with close monitoring of the platelet count . Dr. Catherine to resume care tomorrow.
[2018-01-27] MEDS ORDERED: Argatroban (Non -ESRD) 250 MG in Sodium Chloride 0.9% 250 ML 250 ML IVPB SCH (13:00)
[2018-01-27] MEDS ORDERED: [UNRECOGNIZED DRUG - REMARK] IVPB SCH (13:15)
--- NOTE | 2018-01-27 13:52 | PQF ---
DATE: 01-27-18 ATTN: DR. VESTA KIRAN Please exercise your independent, professional judgment in responding to the clarification form. Clinical indicators are provided on the bottom of this form for your review Diagnosis: SEPSIS Present on Admission (POA): [ ] Yes [ ] No [x] Unable to determine Coding guidelines require hospitals to identify whether a diagnosis was present on admission (POA) or not. To accurately assign the appropriate POA indicator, this information must be clearly documented within the medical record. CLINICAL INDICATORS - SIGNS / SYMPTOMS / LABS PN DR. VESTA KIRAN 01-27-18: APPEARS SOB, TACHYCARDIC, ACUTE LEUKOCYTOSIS PN DR. VESTA KIRAN 01-27-18: SEPSIS, TACHYCARDIC, TACHYPNEIC, LEUKOCYTOSIS , CONTINUE VANC/ZOSYN, BLOOD CXS PENDING WBC: 01-26-18: 15.3 01-27-18: 13.1, 15.1 PULSE: ER: 119, 125, 120, 119, 111, 114, 116, 107, 106 RR: ER: 33, 37, 21, 34 RISK FACTORS: ER: SOB, SMOKER, HX A FIB, OBESITY, GERD, POOR PO INTAKE, S/ P 2 WEEKS GASTRIC SLEEVE TREATMENT: ER: IVF PN DR. VESTA KIRAN 01-27-18: SEPSIS, TACHYCARDIC, TACHYPNEIC, LEUKOCYTOSIS, CONTINUE VANC/ZOSYN, BLOOD CXS PENDING (This form is maintained as a part of the permanent medical record) 2014 [employer]. All Rights Reserved EDWARD [email or web address] Office: [phone] CORY
[2018-01-27] MEDS: Piperacillin/Tazobactam 3.375 GM in Sodium Chloride 0.9% 100 ML IVPB SCH ×3 (14:34→22:45)
[2018-01-27] MEDS: Sodium Chloride 0.9% 1,000 ML IV SCH ×4 (14:55→21:22)
[2018-01-27 15:33] LABS: #Lymphocytes 1.3 thou/uL (1.20-3.40); #Monocytes 1.7 thou/uL (0.11-0.59); %Basophils 0.2 % (0.0-1.0); %Eosinophils 0.3 % (0.0-10.0); %Lymphocytes 8.1 % (21.0-51.0); %Monocytes 10.6 % (0.0-10.0); %Neutrophils 80.8 % (42.0-75.0); Hemoglobin 14.5 g/dL (14.0-18.0); Mean Corpuscular HGB CONC 32.1 g/dL (32.0-36.0); Mean Corpuscular Hemoglobin 29.5 pg (27.0-31.0); Mean Platelet Volume 9.6 fL (7.4-10.4); Platelet Count 110 thou/uL (130-400); RBC Distribution Width 12.8 % (11.5-14.5); Red Blood Cell (RBC) Count 4.93 mill/uL (4.70-6.10); White Blood Cell (WBC) Count 16.1 thou/uL (4.8-10.8)
[2018-01-27 15:37] LABS: Fibrinogen 424 mg/dL (253-463)
[2018-01-27 15:45] LABS: Large Platelets SLIGHT; MDiff Complete? YES; PLT Morphology Comment Appears Decreased; RBC Morphology Normal
[2018-01-27 15:48] LABS: FSP-Qualitative ABNORMAL (Normal)
[2018-01-27 15:53] LABS: D-Dimer Test Greater than 20.00 *mcg/mL (0.27-0.43)
[2018-01-27 15:54] LABS: Anion Gap 20 mmol/L (10-20); BUN (Urea Nitrogen) 24 mg/dL (8.9-20.6); Calc. Creatinine Clearance 65 mL/min (70-130); Calcium 9.1 mg/dL (7.8-10.44); Carbon Dioxide 16 mmol/L (22-29); Chloride 106 mmol/L (98-107); Estimated GFR-MDRD 21; Glucose 114 mg/dL (70-105); Potassium 5.6 mmol/L (3.5-5.1); Sodium 136 mmol/L (136-145)
[2018-01-27 15:55] LABS: FSP-Semiquantitative >=160 & <320 mcg/mL (Less than 5)
[2018-01-27] MEDS: Lorazepam 2 MG/ML VIAL SLOW IVP PRN ×2 (16:39→23:20)
[2018-01-27] MEDS: Albuterol Sulfate 2.5 mg/3 ml Neb NEB SCH ×2 (18:11→18:24)
--- NOTE | 2018-01-27 18:28 | SPC ---
LEFT UPPER EXTREMITY PICC LINE EXCHANGE WITH FLUOROSCOPIC GUIDANCE: Date: 01/27/18 HISTORY: Needs IV antibiotics. Patient has an existing midline. EXPOSURE: 0.5 minutes. 7719 mGy*cm^2. FINDINGS: Successful exchange of a midline with a dual lumen 5 Persian catheter. Distal tip is in the superior v radha cava. Trim length is 45 cm. Both lumens flush and aspirate without difficulty. TECHNIQUE: Consent obtained to perform a midline exchange. Midline was prepped and draped in the sterile fashion . A 0.018 guidewire was advanced through the midline to the level of the superior vena cava. Midline catheter was removed. 1% lidocaine, buffered with sodium bicarbonate, was used for local anesthesia. The incision for the midline was slightly increased. Dilator was placed. A 45 cm dual lumen 5 Persian catheter was advanced over the wire. Wire was removed. Both lumens flush and aspirate without difficu lty. IMPRESSION: Successful left upper extremity midline exchange for a brand new dual lumen PICC line with fluorosco pic guidance. POS: CAROLYN
--- NOTE | 2018-01-27 19:28 | ULT ---
RENAL ULTRASOUND: 01/27/18 INDICATION: Acute renal insufficiency. FINDINGS: The documented left renal length is slightly greater than 10 cm and right renal length approximately 11 cm. There is no overt hydronephrosis or suspicious renal lesion of the visualized kidneys. Evaluat ion is limited due to overlying body wall soft tissues. The urinary bladder is not reliably assessed, with an indwelling urinary catheter and a decompressed state. IMPRESSION: No overt hydronephrosis of either kidney. POS: CAROLYN
[2018-01-27 19:51] VITALS: TEMP 96.3
[2018-01-27 20:01] LABS: Actual Bicarbonate (HCO3a) 11.5 mEq/L (22-28); Base Excess (BEa) -11.6 mEq/L (-2.0 to +3.0); CO2 Tension 21.1 mmHg (35.0-45.0); O2 Tension (PaO2) 108.5 mmHg (80.0-100.0); pH, Arterial 7.36 (7.35-7.45)
[2018-01-27 20:02] LABS: Calcium, Ionized 1.06 mmol/L (1.12-1.30); Carboxyhemoglobin (COHb) 0.6 gm% (0.0-3.0); Hemoglobin (Hb) 14.3 g/dL (14.0-18.0); Potassium - ABG Lab 5.61 mmol/L (3.70-5.30); Puncture Site RRA
[2018-01-27 20:03] LABS: ALV-art Gradient 121.805 (0-20)
--- NOTE | 2018-01-27 20:42 | PDOC.EVN ---
Event Note - Event Note Event Note: Nurses paged about manual SBP in the 80s and increased resp rate: 50s, inc O2 requirement. HR: 102. AB.36, PCO2: 21, PO2: 108. urine output during the day : 175ml. Discussed case with Dr. Sánchez, 1L NS given, transferred to CCU for concerns of resp decompensation. After bolus, SBP manual was 60s, RR: 50s, SO2: sometimes dropping to 91%. Another liter NS bolus given. <Kevin Gallagher - Last Filed: 01/27/18 20:42> Attending Addendum - Attending Addendum Date/Time: 01/27/182051 I personally evaluated the patient and discussed the management with Dr. Gallagher Patient c/o significant SOB worsening over the afternoon. Residents paged by nursing due to development of hypotension. Patient with poor urine output through the afternoon (175mL/12 hours). BP through afternoon 100-110/70-80s. At shift change nurses unable to get automated BP; Manual BP was SBP 80s. P98 RR 40 100% on 3.5L NC; Lungs- CTA b/l shallow resp; CV- mildly tachycardic ABG 7.36/21/108/11.5. A/P: 1) Hypotension- Pt transferred to CCU. 2 L NS bolus given; repeat BP 70/30s ; will give additional 1.5L for total of 20 mg/kg; if BP remains low, will start pressors. Continue to monitor closely. plate drying machine tender pulmonary/ICU notified. <Rissa Robertson - Last Filed: 01/27/18 21:08>
[2018-01-27] MEDS ORDERED: Norepinephrine 8 MG/0.9% NS 250 ML ONE (21:11)
[2018-01-27] MEDS ORDERED: Norepinephrine 8 MG/250 ML BAG IVPB PRN (21:15)
[2018-01-27 21:17] LABS: #Eosinphils 0.1 thou/uL (0.0-0.7); #Lymphocytes 1.6 thou/uL (1.20-3.40); #Monocytes 1.5 thou/uL (0.11-0.59); %Basophils 0.1 % (0.0-1.0); %Eosinophils 0.3 % (0.0-10.0); %Lymphocytes 10.5 % (21.0-51.0); %Neutrophils 79.1 % (42.0-75.0); Hemoglobin 13.2 g/dL (14.0-18.0); Mean Corpuscular HGB CONC 32.2 g/dL (32.0-36.0); Mean Corpuscular Hemoglobin 29.8 pg (27.0-31.0); Mean Corpuscular Volume 92.7 fL (78.0-98.0); Mean Platelet Volume 9.7 fL (7.4-10.4); Platelet Count 94 thou/uL (130-400); RBC Distribution Width 12.8 % (11.5-14.5); Red Blood Cell (RBC) Count 4.44 mill/uL (4.70-6.10); White Blood Cell (WBC) Count 15.2 thou/uL (4.8-10.8)
[2018-01-27] MEDS: Sodium Bicarb 50 MEQ/50 ML Abboject 8.4% SYRINGE ONE ×2 (21:22→21:23)
[2018-01-27] MEDS: Sodium Bicarb 50 MEQ/50 ML Abboject 8.4% SYRINGE IVP SCH (21:32)
--- NOTE | 2018-01-28 00:40 | CON ---
DATE OF CONSULTATION: 01/27/2018 REASON FOR CONSULTATION: Thrombocytopenia with concern for HUMPHREY. HISTORY OF PRESENT ILLNESS: A 42-year-old, -Vincentian male with morbid obesity, status post recent gastric sleeve procedure, presenting with acute onset chest pain and severe shortness of breath that started three days ago. Patient stated it progressively worsened, and so, he sought medical care and presented to the ED on 01/26/2018. The patient supposedly received Lovenox as DVT prophylaxis immediately after surgery. He states he has chronic back pain at baseline, but has recently been feeling much weaker and not able to move very much though he does state he is frequently up and about and not immobile. He denies any fevers, night sweats or worsening fatigue prior to this event. The patient does not work as he is on disability with [employer] does walk around most of the time. The patient denies any history of blood clots in the past or blood clots in the family. He has a family history of breast cancer in a sister. The patient has never had a problem with his liver or kidney prior to this presentation. The patient also denies any bleeding. The patient was found to have bilateral pulmonary embolism and/or thrombus in the hospital and was appropriately started on a heparin drip; however, within approximately 12 hours, his platelets decreased by over 50% from 269 upon presentation to 129 and are currently 110. He has no anemia and has mild leukocytosis with a left shift. Patient's D-dimer was greater than 20. He has elevated fibrin degradation products and normal fibrinogen. Patient is a smoker of a half pack per day from age 14 to 42 and states he quit smoking approximately 6 months ago. REVIEW OF SYSTEMS: Ten-point review of systems negative except as per HPI. PAST MEDICAL HISTORY: Morbid obesity, GERD, atrial fibrillation, CVA in the past, hypertension. SOCIAL HISTORY: Former smoker, quit 6 months ago. Half pack a day from age 14 to 42. Drinks alcohol a few times per year. Denies illicit drug use. FAMILY HISTORY: Breast cancer in his sister. No history of blood clotting. PHYSICAL EXAMINATION: VITAL SIGNS: Temperature 97.0, pulse 102, respirations 39, satting 100% on 4 liters by nasal cannula, blood pressure 95/69. GENERAL APPEARANCE: The patient appears tachypneic, lying in bed. HEENT: Normocephalic, atraumatic. NECK: Supple. Trachea midline. CARDIOVASCULAR: Normal S1, S2, tachycardic. No murmurs, rubs or gallops appreciated. LUNGS: Respirations tachypneic, but otherwise, clear to auscultation bilaterally without any wheezing, rales or rhonchi. ABDOMEN: Obese, soft, nondistended. EXTREMITIES: No edema, erythema or calf tenderness. NEUROLOGIC: Mild left-sided facial droop, which is residual from prior stroke and at baseline as per family. SKIN: No rashes. PSYCHIATRIC: Alert and oriented x3. HEMATOLOGIC: No unusual ecchymoses or petechia. LABORATORY DATA: White blood cells 16.1, hemoglobin 14.5, platelets 269 on presentation at 2:00 p.m. on 01/26/2018, down trended to 129 on 01/27/2018 at 3: 00 a.m., currently 110. D-dimer greater than 20. Fibrin degradation products greater than 160, but less than 320. Fibrinogen 424. BUN 24, creatinine 3.82. AST 2975, ALT 2842, alkaline phosphatase 112, total bilirubin 1.6, albumin 3.6. IMAGING DATA: CT angio of the chest dated 01/26/2018 shows bilateral pulmonary embolism. Venogram of lower extremity shows no DVT. ASSESSMENT AND PLAN: A 42-year-old, -Vincentian male with morbid obesity, status post recent gastric sleeve procedure within the last 2 weeks, presenting with bilateral pulmonary embolism and RV thrombus, started on heparin drip and then experiencing a greater than 50% drop in his platelet count. Patient received Lovenox around the time of the surgery, possibly pre-sensitizing him to heparin leading to HUMPHREY. Patient's 4T score is in intermediate range, and therefore, it is appropriate to send a HUMPHREY antibody and serotonin release assay and start patient on argatroban. Due to the patient's liver dysfunction, he is not eligible for argatroban, and patient also has kidney dysfunction and fondaparinux would not been the best choice, and so therefore, the patient is currently on bivalirudin. We will continue with this unless this patient has platelets drop to less than 50. If antibody testing rules out HUMPHREY, we may transition him back to heparin. Patient has multiple risk factors for blood clotting including morbid obesity, smoking and recent surgery, and likely does not have any underlying genetic hypercoagulability states. He has given no family history and he is -Vincentian and most of the mutations are mostly seen in Caucasians including prothrombin gene mutation and factor V Leiden. Other genetic testing including protein C and protein S deficiencies are unable to be tested for during the acute thrombus and while the patient was on anticoagulation. These could be considered in the future. The patient does not have any symptoms of autoimmune disease such as SLE; however, given the dramatic clot burden and history of CVA given his young age, it would be prudent to rule out antiphospholipid syndrome and appropriate antibodies have been ordered. I will follow along with this patient with you. Angelique Centeno is ground nuclear weapons assembly officer over the weekend. Thank you for this consult. CORY
[2018-01-28] MEDS ORDERED: Sodium Bicarb 50 MEQ/50 ML Abboject 8.4% SYRINGE ONE ×3 (01:00→05:49)
[2018-01-28] MEDS ORDERED: Vasopressin 40 UNIT, Admixture Fee 1 EACH in Sodium Chloride 0.9% 100 ML IV SCH (01:00)
[2018-01-28] MEDS ORDERED: EPINEPHrine 1 MG/10 ML Abboject SYRINGE ONE (01:00)
[2018-01-28] MEDS ORDERED: Calcium Chloride 1 GM/10 ML Abboject SYRINGE ONE ×2 (01:00→04:32)
[2018-01-28] MEDS ORDERED: Dextrose 50% Abboject 50 ML SYRINGE ONE (01:00)
[2018-01-28] MEDS ORDERED: Hydrocortisone Sod Succ/PF 100 mg/2 ml Vial IVP SCH (01:00)
[2018-01-28 01:16] LABS: #Eosinphils 0.1 thou/uL (0.0-0.7); #Lymphocytes 1.3 thou/uL (1.20-3.40); #Monocytes 1.5 thou/uL (0.11-0.59); #Neutrophils 12.8 thou/uL (1.40-6.50); %Basophils 0.1 % (0.0-1.0); %Eosinophils 0.4 % (0.0-10.0); %Monocytes 9.6 % (0.0-10.0); %Neutrophils 81.9 % (42.0-75.0); Hemoglobin 14.1 g/dL (14.0-18.0); Mean Corpuscular HGB CONC 31.9 g/dL (32.0-36.0); Mean Corpuscular Hemoglobin 29.8 pg (27.0-31.0); Mean Corpuscular Volume 93.4 fL (78.0-98.0); Mean Platelet Volume 9.7 fL (7.4-10.4); Platelet Count 85 thou/uL (130-400); RBC Distribution Width 12.9 % (11.5-14.5); Red Blood Cell (RBC) Count 4.74 mill/uL (4.70-6.10); White Blood Cell (WBC) Count 15.6 thou/uL (4.8-10.8)
[2018-01-28 01:37] LABS: Albumin 3.3 g/dL (3.5-5.0); Alkaline Phosphatase 107 U/L (40-150); Anion Gap 26 mmol/L (10-20); BUN (Urea Nitrogen) 30 mg/dL (8.9-20.6); Bilirubin, Total 1.8 mg/dL (0.2-1.2); Calc. Creatinine Clearance 51 mL/min (70-130); Calcium 8.6 mg/dL (7.8-10.44); Carbon Dioxide 11 mmol/L (22-29); Chloride 108 mmol/L (98-107); Estimated GFR-MDRD 16; Globulin 3.9 g/dL (2.4-3.5); Glucose 124 mg/dL (70-105); Potassium 5.2 mmol/L (3.5-5.1); Protein, Total 7.2 g/dL (6.0-8.3); Sodium 140 mmol/L (136-145)
[2018-01-28 01:47] LABS: AST (SGOT) Greater than 3500 U/L (5-34)
[2018-01-28 01:50] LABS: ALT (SGPT) 7259 U/L (8-55)
[2018-01-28] MEDS: Albuterol Sulfate 2.5 mg/3 ml Neb NEB SCH ×2 (02:22→07:19)
[2018-01-28] MEDS: Sodium Chloride 0.9% 1,000 ML IV SCH ×2 (03:40→06:21)
[2018-01-28] MEDS: Piperacillin/Tazobactam 3.375 GM in Sodium Chloride 0.9% 100 ML IVPB SCH (03:40)
[2018-01-28 03:48] LABS: Actual Bicarbonate (HCO3a) 7.2 mEq/L (22-28); Base Excess (BEa) -19.3 mEq/L (-2.0 to +3.0); Calcium, Ionized 1.05 mmol/L (1.12-1.30); Carboxyhemoglobin (COHb) 0.7 gm% (0.0-3.0); Hemoglobin (Hb) 14.4 g/dL (14.0-18.0); O2 Tension (PaO2) 99.6 mmHg (80.0-100.0); Potassium - ABG Lab 5.26 mmol/L (3.70-5.30)
[2018-01-28 03:51] LABS: pH, Arterial 7.17 (7.35-7.45)
[2018-01-28 03:52] LABS: CO2 Tension 20.1 mmHg (35.0-45.0)
[2018-01-28 03:53] LABS: ALV-art Gradient 74.915 (0-20)
[2018-01-28] MEDS ORDERED: Midazolam HCl 2 mg/2 ml Vial ONE ×2 (04:23→05:06)
[2018-01-28] MEDS ORDERED: Ventilator Sedation Protocol 1 EACH FS ONE (04:37)
[2018-01-28] MEDS ORDERED: Lorazepam 2 MG/ML VIAL SLOW IVP PRN (04:39)
[2018-01-28] MEDS ORDERED: fentaNYL Citrate/PF 2,000 MCG in Sodium Chloride 0.9% 60 ML IV SCH (04:39)
[2018-01-28] MEDS ORDERED: Propofol BOLUS 1,000 MG/100 ML VIAL IV PRN (04:39)
[2018-01-28] MEDS ORDERED: Propofol 1,000 MG/100 ML VIAL IV PRN (04:39)
[2018-01-28] MEDS ORDERED: DISCONTINUE PREVIOUS NARCOTIC PAIN MEDICATIONS AND BENZODIAZEPINES FS SCH (04:39)
[2018-01-28] MEDS ORDERED: Fentanyl BOLUS 250 ML IVPB PRN (04:39)
[2018-01-28] MEDS ORDERED: Lidocaine 1% (PF) 30 ML VIAL ONE ×2 (04:51→04:52)
[2018-01-28 05:02] LABS: Actual Bicarbonate (HCO3a) 9.4 mEq/L (22-28); Base Excess (BEa) -16.4 mEq/L (-2.0 to +3.0); Calcium, Ionized 0.96 mmol/L (1.12-1.30); Carboxyhemoglobin (COHb) 0.3 gm% (0.0-3.0); Hemoglobin (Hb) 13.1 g/dL (14.0-18.0); O2 Tension (PaO2) 409.5 mmHg (80.0-100.0); Potassium - ABG Lab 4.77 mmol/L (3.70-5.30)
[2018-01-28 05:05] LABS: CO2 Tension 23.2 mmHg (35.0-45.0); pH, Arterial 7.22 (7.35-7.45)
[2018-01-28 05:08] LABS: Puncture Site ALINE
[2018-01-28] MEDS: Sodium Bicarb 50 MEQ/50 ML Abboject 8.4% SYRINGE IVP SCH (05:12)
[2018-01-28] MEDS ORDERED: Sodium Bicarbonate 150 MEQ in Dextrose 5% in Water 1,000 ML IV SCH (05:30)
[2018-01-28 05:46] LABS: Actual Bicarbonate (HCO3a) 8.7 mEq/L (22-28); Base Excess (BEa) -19.7 mEq/L (-2.0 to +3.0); Calcium, Ionized 0.99 mmol/L (1.12-1.30); Carboxyhemoglobin (COHb) 0.1 gm% (0.0-3.0); Hemoglobin (Hb) 13.3 g/dL (14.0-18.0); O2 Tension (PaO2) 205.9 mmHg (80.0-100.0)
[2018-01-28 05:47] LABS: Puncture Site RRA
[2018-01-28] MEDS ORDERED: Sodium Bicarb 50 MEQ/50 ML Abboject 8.4% SYRINGE IVP SCH (06:00)
--- NOTE | 2018-01-28 06:34 | PRG ---
DATE OF SERVICE: 01/28/2018 Mr. Pelaez has continued to decline overnight. He has had decreasing urine output. He has had a progressive metabolic acidosis. He has had tachypnea associated with his acidemia. Throughout all of this he has denied pain anywhere, but he specifically denied abdominal pain when I saw him first about 4:15 this morning. His blood gas at 3:35 was pH 7.17, CO2 20, pO2 99. I recommended that the staff set up for intubation. When I arrived he was able to converse in short sentences. His respiratory rate was in the mid 30s, blood pressure was 70 by a wrist cuff. His arms are so big we could not get even a big boy cuff to consistently read blood pressures. His IV fluids were opened to wide open with a pressure bag. He was given 2 mg of Versed. He was placed in sitting position and fiberoptic bronchoscope was introduced via bite block and his cords were visualized. He was quickly intubated, connected to mechanical ventilation. He was given 2 more mg of Versed. He was given IV sodium bicarbonate. He was already on Levophed drip and vasopressin has been started overnight. LUNGS: His lungs were clear. HEART: Regular rapid rhythm, distant S1 and S2 because of his size, most likely. ABDOMEN: Abdomen was soft with absolutely no tenderness. EXTREMITIES: Extremities were cool. Intake and output was significantly positive. He received a couple liters of saline overnight and was on 200 mL an hour of IV fluid. LABORATORY: His white count 15.6, hemoglobin 14.1, platelets 85,000. PH after intubation was 7.22, CO2 23, pO2 of 409. At 5:42 his pH is back down to 7.1 with CO2 of 29, pO2 205 on 50%. His pO2 is 409 on 100%. This degree of gas exchange would argue against progressive thromboembolic disease. There is a concern he may have heparin-induced thrombocytopenia so he was switched Angiomax. Serial platelet counts were 245 on presentation, 129 yesterday and 85 this morning. The unexpected lab finding was AST greater than 3500 and ALT of 7259 with a bilirubin of 1.8. Potassium on this morning's electrolytes were 5.2. His creatinine is up to 4.8. IMPRESSION: Progressive multiorgan failure for an unclear reason. He had an atrial clot on echo on the right side. He could have embolized this, but this really does not fit with the clinical picture in my opinion. I would have expected a more rapid decompensation from a respiratory standpoint with bigger gas exchange issues. Actually he was on nasal cannula when I arrived and had saturations in the 90s. Hepatic congestion with right heart failure associated with thromboembolic disease certainly could do this, but again it is an unusual presentation. I have contacted the echocardiogram tech and he is on his way up here to repeat his echo, even though he had one yesterday. Place an external cardiac output monitor. Recommended placing an arterial line and this has been done. I met with his fiancee and family and answered all their questions. He has a fairly grim prognosis at this point. He is noted to be back in atrial fibrillation. Actually I am hesitant to try to control his rate for fear of aggravating his blood pressure issues. Critical care time 90 minutes independent of procedures. CORY
[2018-01-28 06:38] LABS: Actual Bicarbonate (HCO3a) 12.1 mEq/L (22-28); Base Excess (BEa) -14.1 mEq/L (-2.0 to +3.0); CO2 Tension 29.8 mmHg (35.0-45.0); Calcium, Ionized 0.94 mmol/L (1.12-1.30); Carboxyhemoglobin (COHb) 0.2 gm% (0.0-3.0); Hemoglobin (Hb) 13.1 g/dL (14.0-18.0); O2 Tension (PaO2) 202.4 mmHg (80.0-100.0); Potassium - ABG Lab 5.14 mmol/L (3.70-5.30)
[2018-01-28 06:41] LABS: Puncture Site ALINE; pH, Arterial 7.23 (7.35-7.45)
--- NOTE | 2018-01-28 06:47 | OP ---
DATE OF PROCEDURE: 01/28/2018 SURGEON: Dr. Sunny Sánchez PROCEDURE: 1. Fiberoptic intubation. 2. Arterial line placement. PROCEDURE IN DETAIL: Bite block was placed in his mouth. Bronchoscope was introduced via bite block and his vocal cords easily visualized. He was quickly int ubated with a 7.5 tube to a point above the main landy. Quick inspection of his tracheobronchial t ree revealed no endobronchial abnormalities. He was then connected to mechanical ventilation, sedated with Versed. His right groin was then prepped with chlorhexidine followed by Betadine. His femoral artery was can nulated with a 5-Danish introducer needle. J-wire was passed followed by 5 Danish catheter. Good wa veform was obtained when connected to the monitor. This was sewn in place x2 and a sterile dressing was applied. The patient tolerated both procedures well.
--- NOTE | 2018-01-28 07:14 | PDOC.FM ---
- Subjective Subjective: 42 yo male seen at bedside this AM. Patient had increasing dyspnea. Patient also became increasingly hypotensive. Patient has since been intubated and started on vasopressers support. Patient had a stat ECHO completed this morning with no evidence of thrombus present. Patient's family has been notified how severe and critical his condition is. All questions were answered. - Objective Vital Signs & Weight: Vital Signs (12 hours) Temp Pulse Resp BP Pulse Ox 01/28/18 05:01 153 H 109/54 L 01/28/18 02:22 106 H 45 H 93 L 01/27/18 20:00 98 01/27/18 19:49 96.3 F L 100 40 H 100 Weight Weight 183.4 kg Most Recent Monitor Data Heart Rate from ECG 111 NIBP 174/153 NIBP BP-Mean 167 Respiration from ECG 48 SpO2 96 I&O: 01/27/18 01/28/18 01/29/18 06:59 06:59 06:59 Intake Total 2443 1127.4 Output Total 175 Balance 2443 952.4 Result Diagrams: 01/28/18 01:02 01/28/18 01:02 <Michael Almaguer - Last Filed: 01/28/18 09:08> - Objective Vital Signs & Weight: Weight Weight 183.4 kg Most Recent Monitor Data Heart Rate from ECG 142 NIBP 156/108 NIBP BP-Mean 123 Respiration from ECG 43 SpO2 55 Result Diagrams: 01/28/18 01:02 01/28/18 01:02 <Kortney Sexton - Last Filed: 01/31/18 13:41> Phys Exam - Physical Examination ET in place Intubated and sedated Deviation from normal: intubated and sedated <Michael Almaguer - Last Filed: 01/28/18 09:08> Dx/Plan (1) Multiple pulmonary emboli Code(s): I26.99 - OTHER PULMONARY EMBOLISM WITHOUT ACUTE COR PULMONALE Status : Acute (2) HIT (heparin-induced thrombocytopenia) Code(s): D75.82 - HEPARIN INDUCED THROMBOCYTOPENIA (HIT) Status: Acute (3) Acute renal failure Status: Acute (4) Acute liver failure Status: Acute (5) Morbid obesity Code(s): E66.01 - MORBID (SEVERE) OBESITY DUE TO EXCESS CALORIES Status: Chronic (6) History of weight loss surgery Code(s): Z98.84 - BARIATRIC SURGERY STATUS Status: Acute (7) Leukocytosis Code(s): D72.829 - ELEVATED WHITE BLOOD CELL COUNT, UNSPECIFIED Status: Acute (8) Elevated troponin Code(s): R74.8 - ABNORMAL LEVELS OF OTHER SERUM ENZYMES Status: Acute (9) HTN (hypertension) Code(s): I10 - ESSENTIAL (PRIMARY) HYPERTENSION Status: Chronic (10) History of atrial fibrillation Code(s): Z86.79 - PERSONAL HISTORY OF OTHER DISEASES OF THE CIRCULATORY SYSTEM Status: Chronic (11) History of CVA (cerebrovascular accident) Code(s): Z86.73 - PRSNL HX OF TIA (TIA), AND CEREB INFRC W/O RESID DEFICITS Status: Acute (12) GERD (gastroesophageal reflux disease) Code(s): K21.9 - GASTRO-ESOPHAGEAL REFLUX DISEASE WITHOUT ESOPHAGITIS Status: Chronic (13) Hyperkalemia Code(s): E87.5 - HYPERKALEMIA Status: Acute - Plan Plan: Multiple PE - Holding Heparin for possible HIT and elevated PTT - Will need to be transitioned to snf oral medications - Hypercoagulability panel pending per Heme/Onc - Continuous cardiac monitoring - Repeat ECHO pending - Dr. Dawn consulted, appreciate his recs. - Consider thrombolysis Suspected HIT - Received Lovenox last month before gastric sleeve surgery, pt reports instructed to stop per Dr Hawkins - Plts 259-> 85 - Heparin Held - Will repeat CBC and plan to switch to another AC agent Acute Liver Failure - HIT vs hepatic congestion - Monitor liver function Acute Kidney failure - Elevated above baseline - 1.5-> 2.36-> 2.39> 4.88 - Could be due to recent surgery and diet changes - No urine output overnight, will give 1L bolus - Consulting Nephrology - Will likely need dialysis, triple lumen trialysis catheter placed this AM. High PTT - 70.5 - Currently on Bivalirudin Hyperkalemia - 5.2 - Calcium gluconate, insulin/glucose, kayexalate - Likely will need dialysis Sepsis - Tachycardic, tachypneic, leukocytosis - Continue Zosyn - Blood cxs pending Elevated Troponin - Likely related to PE and demand - 0.410-> 1.141-> 0.971 - Cardiology consulted, Apprec recs Recent weight loss surgery for morbid obesity - Dr. Hawkins performed procedure on 01/12. Discharged 01/14. - Dr Hawkins has been notified - Modified diet per surgery recommendations Leukocytosis - Likely due to PE - Will trend with CBC GERD - Continue home medications HTN - Continue home medications Past history of A-fib - Currently in A-fib - Continuous telemetry monitoring - Cardiology stopped anticoagulants in recent past Past history of CVA - MRI in clinic chart shows ischemic changes in right lobe - Baseline left sided facial weakness Disposition: Grim, will continue current plan of care. <Micheal Almaguer - Last Filed: 01/28/18 09:08> Attending Addendum - Attending Addendum Date/Time: 01/28/18 7515 I personally discussed the management with Dr. Almaguer I agree with the History, Examination, Assessment and Plan documented above with any addition or exceptions noted below. Unable to assist with code blue called at 0825 due to delivery of on L& D. Not able to evaluate patient prior to time of at 0846. Patient admitted with very grim outlook on 01/27/18 and continued to decline since admission. Shelton <Kortney Sexton - Last Filed: 01/31/18 13:41>
[2018-01-28 07:24] VITALS: BP 152/38
--- NOTE | 2018-01-28 07:45 | CON ---
DATE OF CONSULTATION: 01/27/2018 CONSULTING PHYSICIAN: Dr. Dunne. REASON FOR CONSULTATION: Acute kidney injury. REASON FOR ADMISSION: Shortness of breath. HISTORY OF PRESENT ILLNESS: This is a 42-year-old male with history of gastric sleeve surgery, morbi d obesity, chronic back pain who came to the hospital with shortness of breath and was found to have bilateral PE and being admitted. Patient was also having nausea for a few days and he was found to h ave a creatinine of 2.4. His admission creatinine was 1.4, baseline is 1.2. He also had a CT angio done on 01/26/2018, which showed bilateral pulmonary embolism and is being treated for that, but he i s having thrombocytopenia and consents for HIT. Nephrology consulted for acute kidney injury. Patie nt is very tired and weak and ill-looking. No chest pain, no diarrhea, no shortness reported. PAST MEDICAL HISTORY: Positive for chronic back pain, GERD, morbid obesity, and history of hypertens ion. PAST SURGICAL HISTORY: Tumor removal and gastric sleeve 6 weeks ago. HOME MEDICATIONS: Hydrocodone, Protonix, Lipitor, furosemide, Cordarone, diltiazem and Zofran. SOCIAL HISTORY: No alcohol or illicit drug abuse. Former smoker. FAMILY HISTORY: Positive for heart disease. REVIEW OF SYSTEMS: The following complete review of systems was negative, unless otherwise mentioned in the HPI or below: Constitutional: Weight loss or gain, ability to conduct usual activities. Sk in: Rash, itching. Eyes: Double vision, pain. ENT/Mouth: Nose bleeding, neck stiffness, pain, te nderness. Cardiovascular: Palpitations, dyspnea on exertion, orthopnea. Respiratory: Shortness of breath, wheezing, cough, hemoptysis, fever or night sweats. Gastrointestinal: Poor appetite, abdom inal pain, heartburn, nausea, vomiting, constipation, or diarrhea. Genitourinary: Urgency, frequenc y, dysuria, nocturia. Musculoskeletal: Pain, swelling. Neurologic/Psychiatric: Anxiety, depressio n. Allergy/Immunologic: Skin rash, bleeding tendency. PHYSICAL EXAMINATION: GENERAL: This is a morbidly obese male in no apparent distress. VITAL SIGNS: Temperature 97.0, pulse 100, respiratory rate 18, blood pressure 195/67. HEENT: Atraumatic, normocephalic. Oral mucosa is moist. NECK: Supple, no masses. CARDIOVASCULAR: S1, S2. Rate and rhythm regular. RESPIRATORY: Clear. ABDOMEN: Soft. MUSCULOSKELETAL: 1+ edema. DERMATOLOGIC: No rash. NEUROLOGIC: Alert, awake. PSYCHIATRIC: Mood and affect normal. LABORATORY DATA: Hemoglobin is 14.5, potassium is 5.6, BUN is 24, creatinine is 3.8, potassium 6.4 t his morning. ASSESSMENT AND PLAN: 1. Acute kidney injury most likely from contrast nephropathy. Avoid depletion. Agree with christian camacho. We will add bicarbonate given the hyperkalemia, metabolic acidosis bicarbonate drip. 2. Hyperkalemia, better. Limit potassium . 3. Elevated liver enzymes. 4. Edema, controlled. 5. Hypertension, stable. 6. Morbid obesity, status post recent gastric sleeve surgery. Plan is to continue on IV fluids. Add bicarbonate and monitor. Limit potassium in the diet, monitor closely.
[2018-01-28 07:58] LABS: Actual Bicarbonate (HCO3a) 10.5 mEq/L (22-28); Base Excess (BEa) -16.5 mEq/L (-2.0 to +3.0); CO2 Tension 29.2 mmHg (35.0-45.0); Calcium, Ionized 0.94 mmol/L (1.12-1.30); Carboxyhemoglobin (COHb) 0.3 gm% (0.0-3.0); Hemoglobin (Hb) 13.3 g/dL (14.0-18.0); O2 Tension (PaO2) 166.1 mmHg (80.0-100.0); Potassium - ABG Lab 4.88 mmol/L (3.70-5.30)
[2018-01-28 07:59] LABS: Puncture Site ALINE; pH, Arterial 7.17 (7.35-7.45)
[2018-01-28] MEDS ORDERED: Dextrose 50% Abboject 50 ML SYRINGE SLOW IVP SCH (08:00)
[2018-01-28] MEDS ORDERED: Insulin Regular 300 UNITS/3 ML VIAL IVP SCH (08:00)
[2018-01-28] MEDS ORDERED: ALTEPLASE IVPB SCH (08:15)
--- NOTE | 2018-01-28 08:24 | RAD ---
CHEST 1 VIEW: HISTORY: Intubated. COMPARISON: 01/26/2018. FINDINGS: Cardiac silhouette is magnified and enlarged. Shallow inspiration accentuates the pulmonary markings . Right hemidiaphragm remains elevated. The tip of an endotracheal catheter is at the level of the landy. quality assurance monitor body leads overlie the chest. IMPRESSION: 1. Endotracheal catheter extends to the level of the landy and should probably be withdrawn approxi mately 2-3 cm for better positioning. 2. Pulmonary vascular congestion. Cardiomegaly. POS: [facility]
[2018-01-28] MEDS ORDERED: Propofol 1,000 MG/100 ML VIAL IV ONE (08:35)
[2018-01-28] MEDS ORDERED: EPINEPHrine 1 MG/ML AMP ONE (08:35)
[2018-01-28] MEDS ORDERED: Pantoprazole 40 MG GRANULES PACKET PO SCH (09:00)
--- NOTE | 2018-01-28 09:31 | PDOC.EVN ---
Event Note - Event Note Event Note: 01/28/2018 CODE BLUE RECORD: 42 yo male seen at bedside. Patient was intubated at time of procedure due to increasing respiratory distress and hypotension overnight. Dr. Hawkins, General Surgery, was called to place dialysis catheter at the bedside due to worsening kidney function and zero urinary output. Dr. Dunne, Pulmonology, was present and performed bronchoscopy for adjustment of ET. Following the procedure, the patient was found to be pulseless, in asystole, and code blue was initiated at 08:[address] Dunne, Pulmonology, was present at time of code. Patient was already intubated and chest compressions initiated. Patient received approximately 15 rounds of CPR. Patient received 7 mg of epinephrine, 300 mg of amiodarone, 3 amps of bicarbonate, 1 amp of glucose, 10 units regular insulin, 1 amp Calcium chloride, 1 mg glucagon, and 4 defibrillations. Patient remained in asystole and pulseless. Time of was announced at 08:46 AM. Please refer to code record documentation for further information.
--- NOTE | 2018-01-28 09:51 | PRG ---
DATE OF SERVICE: 01/28/2018 This is a 42-year-old gentleman who was intubated last night with progressive respiratory failure and shock. He presented with bilateral pulmonary emboli and a clot sitting in the right atrium. His liver enzymes which were elevated at 2000, subsequently increased substantially with an AST of gr eater than 3500 and an ALT of 7259 suggestive of hepatic injury. His BUN and creatinine are 30 and 4.8. Blood gases; his pO2 was 108, pCO2 is 21, pH 7.36. Subsequent blood gases showed marked acidosis wit h a pH 7.17, pCO2 of 29, pO2 166, a rate of 30, 50% and PEEP of 5. At the time of his intubation, his pH was only 7.17, pCO2 is 20, pO2 was 99 on a 2 liter nasal O2 sug gestive of severe metabolic acidosis. Post-intubation, he received aggressive care including bicarbonate. Upon my arrival at about 7:45-7:50, he was on vasopressin and Levophed. Dr. Hawkins, his general surge on who had done his gastric bypass surgery was inserting a central line. The patient about the same time tried to dislodge his endotracheal tube to our surprise. The tube wa s removed for a period of time. We were manually able to pass the tube back into his lung. Emergency bronchoscopy was performed to a ssess the tube was in the right place. A flexible bronchoscope was used. There was blood in the end otracheal tube. Tube was sitting in the right mainstem bronchus, it was pulled back about 2 cm and w as well above the landy. Both lungs were lavaged with normal saline. Upon removing the endotrachea l tube the patient proceeded to have an asystolic event. The patient had t-PA given just prior to his CPR. We had discussed with the family that because of o ngoing shock, even though ____, I did not feel that his clot was very large, but because he had a pe rsistent shock, we felt a low dose t-PA would be warranted. He was given t-PA a total of no more myranda n 10-15 mg during the procedure. CPR was immediately initiated. Long CPR was performed for over 25 minutes with multiple amps of bica rbonate, at least 7, multiple amps of epinephrine at least 7, D50 1 amp. Intensive insulin was given along with 1 gram of glucagon, an amp of calcium, prolonged CPR with multiple cardioversion attempte d. His rhythm during the entire process, showed a slow ventricular tachycardia. Eventually an ____ bill tricular rhythm and a PEA rhythm. Following aggressive CPR was performed with excellent cardiac compression noted on the monitor. Unable to get any form of rhythm at all. CPR was terminated and the patient was pronounced . I went to speak to his sister who is here. The patient's fiancee is not here. We will notify them a s they arrive. FINAL DIAGNOSES: 1. At this stage, remains a cardiopulmonary arrest secondary to pulmonary emboli. 2. Marked liver injury, etiology unclear, possibly hepatic congestion. 3. Renal failure. 4. Morbid obesity. 5. Thrombocytopenia. 6. Baseline underlying cardiomyopathy. The patient had prolonged CPR. He was pronounced at 8:46 a.m. on 01/28/2018.
[2018-01-28] MEDS ORDERED: Sodium Chloride 0.9% 50 ML IVPB SCH (10:00)
--- NOTE | 2018-01-28 11:16 | OP ---
DATE OF PROCEDURE: 01/28/2018 PREOPERATIVE DIAGNOSIS: Pulmonary embolus, shock, liver failure and renal failure. PROCEDURE PERFORMED: Trialysis catheter placement. INDICATIONS: This is a 42-year-old male who was admitted with severe shortness of breath, was found to have multiple pulmonary emboli and a clot in his right heart. He was in hepatic and renal failure . He needed access both for IV access as well as dialysis access potentially. FINDINGS: He had an arterial line in his right groin and for that reason I tried to do this on the l eft femoral vein. I could not feel any palpable pulses in the groin, so I took the ultrasound sonu e and was able to find the artery, but really no significant venous drainage. I did attempt sticking just medial to this artery, but never could get any venous blood. Now, he had an arterial line in h is right femoral artery, so I tried to go alongside it into the right femoral vein. Again, the ultra sound did not show any really much venous flow. I tried to access this and really could not get any blood flow, so I elected to go to the right neck. The neck was prepped and draped. Local anesthesia infiltrated subcutaneously and deep. The carotid artery was palpated. An introducer needle was ins erted with good backflow of venous blood. J-wire threaded easily. The skin was incised with an 11 b lade and the subcutaneous and skin was dilated with a series of dilators. The pre-flushed Trialysis catheter was inserted to 15 cm and then sutured in place. Each of the ports aspirated with good back flow of venous blood, flushed with saline. Sterile bandage applied.
[2018-01-28 12:51] LABS: Cardiolipin IgA Ab 3.5 APL-U/mL (<14 Negative); Cardiolipin IgG Ab 0.8 GPL-U/mL (<10 Negative); Cardiolipin IgM Ab 2.6 MPL-U/mL (<10 Negative); EliA APS New Method **** NEW METHOD ****; beta-2-Glycoprotein I IgA Ab 2.2 U/mL (<7 Negative); beta-2-Glycoprotein I IgG Ab Less than 0.6 U/mL (<7 Negative); beta-2-Glycoprotein I IgM Abs Less than 2.9 U/mL (<7 Negative)
--- NOTE | 2018-01-28 17:46 | PRG ---
DATE OF SERVICE: 01/28/2018 NEPHROLOGY PROGRESS NOTE SUBJECTIVE: The patient was seen and examined in ICU. When I saw him, patient was almost in code st atus and Dr. Hawkins was putting a dialysis catheter and patient had a code again and later. OBJECTIVE: GENERAL: Morbidly obese male seen in ICU. VITAL SIGNS: Temperature 96.3, pulse 40, respiratory rate 18, blood pressure 87/64. HEENT: Intubated. CARDIOVASCULAR: S1, S2 heard, bradycardia. RESPIRATORY: Clear. ABDOMEN: Obese. MUSCULOSKELETAL: 1+ edema. DERMATOLOGIC: No skin rash. NEUROLOGIC: Intubated. PSYCHIATRIC: Not responding. LABORATORY DATA: Potassium 5.2, BUN 30, creatinine is 4.8. ASSESSMENT AND PLAN: 1. Acute kidney injury, multifactorial. Creatinine getting worse. No acute indication for dialysis except for metabolic acidosis. Patient is having poor perfusion given his elevated liver enzymes an d creatinine and a poor candidate for dialysis and high risk for complications given his cardiac stat us. 2. Hyperkalemia. 3. Metabolic acidosis. 4. Hypertension. 5. Morbid obesity. The patient before we could do dialysis and was a rapid decline. Please see the code records .
--- NOTE | 2018-01-29 00:44 | DS-2 ---
ATTENDING: Kortney Sexton MD RESIDENT: Michael Almaguer MD DATE OF ADMISSION: 01/26/2018 DATE OF : 01/28/2018 TIME OF : 08:46 a.m. CAUSE OF : 1. Pulmonary embolism. 2. Acute renal failure. 3. Acute liver failure. SECONDARY DIAGNOSES: 1. Morbid obesity, recent gastric bypass surgery. 2. Thrombocytopenia. 3. Underlying viral cardiomyopathy. 4. History of atrial fibrillation. 5. History of cerebrovascular accident. 6. Gastroesophageal reflux disease. 7. Hyperkalemia. HOSPITAL COURSE: The patient is a 42-year-old male who presents to ED with acute onset of shortness of breath. The patient states he had a gastric sleeve surgery 2 weeks ago, has been recovering well since that time. The patient states that 3 days ago when he woke up to get out of bed, he had an acu te onset of chest pain and shortness of breath. He stated that it was not severe enough to seek [facility] attention at that time. The patient states he has chronic back pain at baseline, but over the st 3 days. he has been increasingly weak. The patient denies any recent illness, cough, bloody emesi s, diarrhea, or rashes during this time. The patient does note that he has had 2 episodes of vomitin g. The patient denies lower extremity edema, redness, or swelling in his legs or joints; unilateral weakness; or vision changes. The patient states that other than shortness of breath, his recovery wa s going well and was scheduled to see his primary care provider today. Of note, the patient has a re sidual left-sided weakness from previous stroke. No other complaints at this time. During this hospitalization, the patient was initially admitted to the telemetry services for monitor ing; however, he had more dyspnea and required more closer monitoring and it was decided that the [facility] would be better suited to be admitted to the IMCU services. The patient then had some notable l ab values on day of admission. His white blood cell count was 15.3, his platelet count was 269, and his creatinine was 1.5. His potassium was 4.4 and his AST and ALT were 18 and 18 respectively. The following morning in the hospital, the patient had acute changes in his laboratory evaluation after s tarting the heparin drip for his pulmonary embolism and his platelet count fell to 113. The patient had a creatinine that bumped to 2.36 and an ALT and AST that bumped to 2975 and 2842 respectively. T he patient also had a potassium level that increased to 6.4. The patient was initiated on insulin-re ducing therapy such as Kayexalate, glucose with insulin, albuterol nebulizers, and calcium gluconate. There was concern for heparin-induced thrombocytopenia at this time, and so Hematology and Oncology was consulted for further management. The patient was discontinued on the heparin drip and was star karl on bivalirudin for treatment of his pulmonary embolism. The patient continued to deteriorate wit h hypotensive episodes on the night of 01/27/2018. The patient was then transferred over to the ICU for higher level of care. Per Hematology and Oncology, DIC as well as hypercoagulable panels were ru n on this patient to try to determine the etiology of his acute thrombocytopenia as well as his deter iorating status. The patient was then subsequently intubated by Dr. Sánchez on 01/28/2018 due to persi stent and progressing hypotension as well as respiratory distress. The patient was then having a kevin tral line placed by Dr. Hawkins in General Surgery for additional IV access. At about that time, the p atient was having a bronchoscopy shortly after then by Dr. Dunne to ensure proper placement of the ET tube within the trachea. The patient then became pulseless and in asystole and a code blue was lauren causey. CPR was initiated and conducted until time of , which was called at 08:46 a.m. on 01/28/2018 . There is an unclear etiology as to what exactly occurred, because the patient on 01/28/2018 had T greater than 3500, ALT greater than 7200, a creatinine of 4.88, a potassium of 5.2, and a platelet count of 85. The patient otherwise continued to deteriorate during the hospitalization despite optim al therapy and on 01/28/2018 at 08:46 a.m.
--- NOTE | 2018-01-29 17:29 | EKG ---
Test Reason : Blood Pressure : / mmHG Vent. Rate : 120 BPM Atrial Rate : 120 BPM P-R Int : 000 ms QRS Dur : 102 ms QT Int : 332 ms P-R-T Axes : 000 149 -27 degrees QTc Int : 469 ms Sinus tachycardia Left posterior fascicular block Possible Inferior infarct , age undetermined Abnormal ECG Confirmed by JOSE GUADALUPE SAN, SHAYLEE Langley ([id number]), scientific editor JOE UMANA ([id number]) on 01/29/2018 5:28:34 PM Referred By: Confirmed By:SHAYLEE SHI MD
--- NOTE | 2018-01-29 17:29 | EKG ---
Test Reason : Blood Pressure : / mmHG Vent. Rate : 112 BPM Atrial Rate : 112 BPM P-R Int : 168 ms QRS Dur : 108 ms QT Int : 360 ms P-R-T Axes : 039 105 007 degrees QTc Int : 491 ms Sinus tachycardia Rightward axis Borderline ECG Confirmed by JOSE GUADALUPE SAN, SHAYLEE Langley ([id number]), scientific publications editor JOE UMANA ([id number]) on 01/29/2018 5:28:35 PM Referred By: Confirmed By:SHAYLEE SHI MD
--- NOTE | 2018-01-29 17:29 | EKG ---
Test Reason : Blood Pressure : / mmHG Vent. Rate : 119 BPM Atrial Rate : 119 BPM P-R Int : 162 ms QRS Dur : 106 ms QT Int : 336 ms P-R-T Axes : 036 108 -02 degrees QTc Int : 472 ms Sinus tachycardia Rightward axis T wave abnormality, consider inferior ischemia Abnormal ECG Confirmed by JOSE GUADALUPE SAN, SHAYLEE Langley ([id number]), avid editor JOE UMANA ([id number]) on 01/29/2018 5:28:34 PM Referred By: Confirmed By:SHAYLEE SHI MD
--- NOTE | 2018-01-30 20:43 | EKG ---
Test Reason : Blood Pressure : / mmHG Vent. Rate : 101 BPM Atrial Rate : 101 BPM P-R Int : 172 ms QRS Dur : 120 ms QT Int : 366 ms P-R-T Axes : 046 129 -13 degrees QTc Int : 474 ms Sinus tachycardia Possible Right ventricular hypertrophy Cannot rule out Anterior infarct , age undetermined T wave abnormality, consider inferior ischemia Abnormal ECG When compared with ECG of 26-JAN-2018 19:27, (Unconfirmed) Inverted T waves have replaced nonspecific T wave abnormality in Anterior leads Confirmed by Alisha BORREGO ([id number]) on 01/30/2018 8:43:08 PM Referred By: MAGNO *R Confirmed By:Alisha BORREGO
== END 2018-01-28 08:46 | disposition expired | DRG 208 ==
LOC: ERS 13:35 → IMCU/EMU 19:23 → CCU 01-27 20:24
PROVIDERS: ADMIT Family Medicine; ATTEND Family Medicine
PROC: 02HV33Z Insertion of Infusion Device into Superior Vena Cava, Percutaneous Approach (ICD-10-PCS; principal; 2018-01-27)
PROC: 5A1935Z Respiratory Ventilation, Less than 24 Consecutive Hours (ICD-10-PCS; 2018-01-27)
PROC: 3E03317 Introduction of Other Thrombolytic into Peripheral Vein, Percutaneous Approach (ICD-10-PCS; 2018-01-27)
PROC: B548ZZA Ultrasonography of Superior Vena Cava, Guidance (ICD-10-PCS; 2018-01-28)
PROC: 0BH17EZ Insertion of Endotracheal Airway into Trachea, Via Natural or Artificial Opening (ICD-10-PCS; 2018-01-28)
PROC: B24BZZ4 Ultrasonography of Heart with Aorta, Transesophageal (ICD-10-PCS; 2018-01-28)
PROC: 5A12012 Performance of Cardiac Output, Single, Manual (ICD-10-PCS; 2018-01-28)
DX: I26.99 Other pulmonary embolism without acute cor pulmonale (principal); K72.00 Acute and subacute hepatic failure without coma; J96.00 Acute respiratory failure, unspecified whether with hypoxia or hypercapnia; N17.9 Acute kidney failure, unspecified; E87.2 Acidosis; Z68.43 Body mass index [BMI] 50.0-59.9, adult; E87.5 Hyperkalemia; I10 Essential (primary) hypertension; E66.01 Morbid (severe) obesity due to excess calories; Z98.84 Bariatric surgery status; D69.6 Thrombocytopenia, unspecified; B33.24 Viral cardiomyopathy; I48.0 Paroxysmal atrial fibrillation; Z86.73 Personal history of transient ischemic attack (TIA), and cerebral infarction without residual deficits; K21.9 Gastro-esophageal reflux disease without esophagitis; Z87.891 Personal history of nicotine dependence; I46.9 Cardiac arrest, cause unspecified; D75.82 Heparin induced thrombocytopenia (HIT); K72.90 Hepatic failure, unspecified without coma
CPT/HCPCS: 36415; 36416; 36569; 71045; 71275; 76770; 80048; 80053; 81240; 81241; 82533; 82542; 82553; 82570; 82805; 83605; 83690; 83880; 84145; 84300; 84484; 85025; 85362; 85379; 85384; 85730; 86146; 86147; 87040; 93005; 93010; 93306; 93970; 94002; 96361; 96365; 96374; 96376; C1751; C1752; J0171; J0282; J0583; J0883; J1644; J1720; J1815; J2001; J2060; J2250; J2405; J2543; J2704; J2997; J3010; J3370; J7050; J7070; J7611